=== PATIENT | male | born 1965 | race Caucasian/White ===

== ENCOUNTER 2017-04-04 20:26 | Emergency (ER) | payer OTHER, SELFPAY ==
[2017-04-04] MEDS ORDERED: MORPHINE SULFATE 4 MG INJ IV ONE (20:58)
[2017-04-04] MEDS ORDERED: Phenergan 25 MG INJ IV ONE (20:58)
[2017-04-04] MEDS ORDERED: Sodium Chloride 0.9% 1000 ML 1,000 ML IV SCH (21:00)
[2017-04-04] MEDS ORDERED: Phenergan 25 MG INJ ONE (21:06)
[2017-04-04] MEDS ORDERED: MORPHINE SULFATE 4 MG INJ ONE (21:06)
[2017-04-04] MEDS ORDERED: Sodium Chloride 0.9% 1000 ML 1,000 ML ONE (21:06)
--- NOTE | 2017-04-04 21:06 | ERPHSYRPT ---
- History of Present Illness Time Seen by Provider: 04/04/17 20:49 Source: patient Exam Limitations: no limitations Patient Subjective Stated Complaint: pt states he strained his arm last week and started having sudden swelling and pain today while sitting on the couch. denies injury today. Triage Nursing Assessment: pt alert and oriented. answers questions approp. respirations shallo, lungs cta. pt ambulatory with steady gait noted. pt restless in bed, swelling noted to rt upper arm with bruising noted to rt bicep area. radial pulse to rt arm wnl. cap refill to rt hand >3 seconds, >3 sec to lt side also. pt states he is unable to straighten rt elbow or lift arm over head. Physician History: LAST WEEK PT STRAINED HIS RIGHT ARM LIFTING LUMBER AND HAD A "VALLEY" OVER HIS BICEPS. ABOUT 3 HOURS AGO PT WAS SITTING ON THE COUCH WHEN HIS RIGHT ARM BECAME SWOLLEN AND BRUISED WITHOUT TRAUMA TONIGHT. PT DENIES PREVIOUS INJURY TO THE RIGHT ARM PRIOR TO LAST WEEK; DENIES NUMBNESS OF THE RIGHT HAND DIGITS. PT DENIES FEVER, VOMITING, CHEST PAIN. Allergies/Adverse Reactions: diflunisal [From Dolobid] Allergy (Verified 04/04/17 20:58) propoxyphene HCl [From Wygesic] Allergy (Verified 04/04/17 20:58) Home Medications: Carvedilol [Coreg] 25 mg PO BID 04/04/17 [History] Hydrocodone Bit/Acetaminophen [Hydrocodon-Acetaminophn 10-325] 1 each PO Q4- 6HPRN PRN 04/04/17 [History] Lisinopril 20 mg [Zestril 20 MG] 20 mg PO BID 04/04/17 [History] Tizanidine HCl 4 mg [Zanaflex 4 MG] 4 mg PO Q8HPRN PRN 04/04/17 [History] Hx Tetanus, Diphtheria Vaccination/Date Given: Yes Hx Influenza Vaccination/Date Given: No Hx Pneumococcal Vaccination/Date Given: No Immunizations Up to Date: Yes - Review of Systems Constitutional: No Fever Cardiac: No Chest Pain Abdominal/Gastrointestinal: No Vomiting Musculoskeletal: Other (RIGHT ARM SWELLING, BRUISING AND TENDERNESS TONIGHT.) Neurological: No Sensory Changes All Other Systems: Reviewed and Negative - Past Medical History Pertinent Past Medical History: Yes Neurological History: Stroke Cardiac History: Hypertension Respiratory History: No Pertinent History Endocrine Medical History: No Pertinent History Musculoskeletal History: No Pertinent History GI Medical History: No Pertinent History History: Other Psycho-Social History: No Pertinent History Male Reproductive Disorders: No Pertinent History Other Medical History: pt states no stroke deficits. hx of kidney stones - Past Surgical History Past Surgical History: Yes Musculoskeletal: Orthopedic Surgery Other Surgical History: left thumb operation, L4L5 operations. - Social History Smoking Status: Current every day smoker How long have you smoked: 17 yrs Exposure to second hand smoke: Yes Alcohol Use: None Drug Use: none Patient Lives Alone: No Significant Family History: no pertinent family hx - Nursing Vital Signs Nursing Vital Signs: Initial Vital Signs Temperature 97.6 F Temperature Source Oral Pulse Rate 89 Respiratory Rate 28 Blood Pressure [] 168/109 Pain Intensity 10 - Physical Exam General Appearance: alert Eyes, Ears, Nose, Throat Exam: pharynx normal, moist mucous membranes, other ( CERUMEN OCCLUSION OF RIGHT EAR) Neck Exam: normal inspection Cardiovascular/Respiratory Exam: normal breath sounds, heart sounds normal Abdominal Exam: soft (B.S. NORMAL) Back Exam: normal range of motion Shoulder Exam: swelling (RIGHT ARM HAS MILD EDEMA, TENDERNESS AND BRUISING OVER THE BICEPS WITH LIMITED ROM AT THE ELBOW AND SHOULDER DUE TO TENDERNESS OVER THE BICEPS.) Wrist Exam: normal inspection, non-tender, no evidence of injury, normal ROM Hand Exam: normal inspection, non-tender, no evidence of injury, normal ROM Neuro/Tendon Exam: normal sensation Mental Status Exam: alert, cooperative Skin Exam: other (CAPILLARY REFILL IS 1 SECOND FOR BOTH HANDS.) SpO2 Interpretation: normal SpO2: 100 Oxygen Delivery: Room Air - Course Nursing assessment & vital signs reviewed: Yes - Radiology Exams Right Humerus X-ray Interpretation: Interpreted by me, No Fracture - Radiology Ultrasound Exam Right Other Ultrasound: Other (TECH REPORT: RUPTURED RIGHT BICEPS; NO DVT.) Ordered Tests: Active Orders 24 hr Category Date Time Status IV Insertion STAT Care 04/04/17 20:58 Active HUMERUS Stat Exams 04/04/17 20:55 Taken VENOUS UNILAT/LIMITED EXTREMIT [US] Stat Exams 04/04/17 20:59 Ordered CBC W DIFF Stat Lab 04/04/17 21:10 Completed CMP Stat Lab 04/04/17 21:10 Completed Erythrocyte Sedimentation Rate Stat Lab 04/04/17 21:10 Completed PROTIME WITH INR Stat Lab 04/04/17 21:10 Completed PTT Stat Lab 04/04/17 21:10 Completed Medication Summary Generic Name Dose Route Start Last Admin Trade Name Raiza PRN Reason Stop Dose Admin Sodium Chloride 1,000 mls @ 100 mls/hr 04/04/17 21:00 04/04/17 21:07 Sodium Chloride 0.9% 1000 Ml IV 05/04/17 20:59 100 mls/hr .Q10H DANA Administration Discontinued Medications Generic Name Dose Route Start Last Admin Trade Name Raiza GAMAN Reason Stop Dose Admin Morphine Sulfate 4 mg 04/04/17 20:58 04/04/17 21:08 Morphine Sulfate 4 Mg Inj IV 04/04/17 20:59 4 mg STAT ONE Administration Morphine Sulfate Confirm 04/04/17 21:06 Morphine Sulfate 4 Mg Inj Administered 04/04/17 21:07 Dose 4 mg .ROUTE .STK-MED ONE Promethazine HCl 12.5 mg 04/04/17 20:58 04/04/17 21:08 Phenergan 25 Mg Inj IV 04/04/17 20:59 12.5 mg STAT ONE Administration Promethazine HCl Confirm 04/04/17 21:06 Phenergan 25 Mg Inj Administered 04/04/17 21:07 Dose 25 mg .ROUTE .STK-MED ONE Lab/Rad Data: Laboratory Result Diagrams 04/04/17 21:10 04/04/17 21:10 Laboratory Results 04/04/17 04/04/17 04/04/17 Range/Units 21:10 21:10 21:10 WBC (4.0-10.5) K/mm3 RBC (4.1-5.6) M/mm3 Hgb (12.5-18.0) gm/dl Hct (42-50) % MCV (78-100) fl MCH (26-32) pg MCHC (32-36) g/dl RDW (11.5-14.0) % Plt Count (150-450) K/mm3 MPV (6-9.5) fl Gran % (36.0-66.0) % Lymphocytes % (24.0-44.0) % Monocytes % (0.0-12.0) % Eosinophils % (0.00-5.0) % Basophils % (0.0-0.4) % Basophils # (0-0.4) ESR 5 (0-15) mm/hr INR 1.07 (0.8-3.0) APTT 28.9 (24.1-36.1) SECONDS Sodium 143 (136-145) mEq/L Potassium 3.7 (3.5-5.1) mEq/L Chloride 106 (98-107) mEq/L Carbon Dioxide 29.1 (21-32) mEq/L Anion Gap 11.5 (5-15) MEQ/L BUN 12 (9-20) mg/dL Creatinine 1.20 (0.55-1.30) mg/dl Estimated GFR > 60 ML/MIN Glucose 136 H (70-110) MG/DL Calcium 9.3 (8.5-10.1) mg/dL Total Bilirubin 0.3 (0.2-1.0) mg/dL AST 48 H (15-37) U/L ALT 149 H (12-78) U/L Alkaline Phosphatase 85 (46-116) U/L Serum Total Protein 8.0 (6.4-8.2) gm/dL Albumin 3.7 (3.4-5.0) g/dL 04/04/17 Range/Units 21:10 WBC 9.9 (4.0-10.5) K/mm3 RBC 4.91 (4.1-5.6) M/mm3 Hgb 16.1 (12.5-18.0) gm/dl Hct 47.4 (42-50) % MCV 96.5 (78-100) fl MCH 32.8 H (26-32) pg MCHC 34.0 (32-36) g/dl RDW 12.6 (11.5-14.0) % Plt Count 143 L (150-450) K/mm3 MPV 11.7 H (6-9.5) fl Gran % 71.2 H (36.0-66.0) % Lymphocytes % 19.5 L (24.0-44.0) % Monocytes % 7.8 (0.0-12.0) % Eosinophils % 1.4 (0.00-5.0) % Basophils % 0.1 (0.0-0.4) % Basophils # 0.01 (0-0.4) ESR (0-15) mm/hr INR (0.8-3.0) APTT (24.1-36.1) SECONDS Sodium (136-145) mEq/L Potassium (3.5-5.1) mEq/L Chloride (98-107) mEq/L Carbon Dioxide (21-32) mEq/L Anion Gap (5-15) MEQ/L BUN (9-20) mg/dL Creatinine (0.55-1.30) mg/dl Estimated GFR ML/MIN Glucose (70-110) MG/DL Calcium (8.5-10.1) mg/dL Total Bilirubin (0.2-1.0) mg/dL AST (15-37) U/L ALT (12-78) U/L Alkaline Phosphatase (46-116) U/L Serum Total Protein (6.4-8.2) gm/dL Albumin (3.4-5.0) g/dL - Departure Time of Disposition: 22:44 Departure Disposition: Home Clinical Impression: RUPTURED RIGHT BICEPS Condition: Fair Critical Care Time: No Referrals: MERRILL WICK MD [Primary Care Provider] - Instructions: Muscle Strain Additional Instructions: FOLLOW UP WITH PRIVATE DOCTOR TOMORROW. KEEP RIGHT ARM IN SLING UNTIL DOCTOR IS SEEN. DO NOT USE RIGHT ARM. Prescriptions: Naproxen [Naprosyn] 500 mg PO [id number] PRN #20 tablet PRN Reason: Pain
[2017-04-04 21:24] LABS: BASOPHIL % 0.1 % (0.0-0.4); Eosinophil % 1.4 % (0.00-5.0); Granulocytes % 71.2 % (36.0-66.0); Lymphocytes % 19.5 % (24.0-44.0); Mean Cell Volume 96.5 fl (78-100); Mean Corpuscular Hemoglobin 32.8 pg (26-32); Mean Platelet Volume 11.7 fl (6-9.5); Monocytes % 7.8 % (0.0-12.0); Platelet Count 143 K/mm3 (150-450); Red Blood Count 4.91 M/mm3 (4.1-5.6); Red Cell Distribution Width 12.6 % (11.5-14.0); White Blood Count 9.9 K/mm3 (4.0-10.5)
[2017-04-04 21:39] LABS: INR 1.07 (0.8-3.0)
[2017-04-04 21:41] LABS: PTT 28.9 SECONDS (24.1-36.1)
[2017-04-04 21:47] LABS: ALBUMIN 3.7 g/dL (3.4-5.0); ALKALINE PHOSPHATASE 85 U/L (46-116); ANION GAP 11.5 MEQ/L (5-15); BILIRUBIN,TOTAL 0.3 mg/dL (0.2-1.0); BLOOD UREA NITROGEN 12 mg/dL (9-20); CHLORIDE 106 mEq/L (98-107); Carbon Dioxide 29.1 mEq/L (21-32); Glucose 136 MG/DL (70-110); Potassium 3.7 mEq/L (3.5-5.1); SGOT/AST 48 U/L (15-37); SGPT/ALT 149 U/L (12-78); SODIUM 143 mEq/L (136-145)
[2017-04-04] MEDS ORDERED: NORCO 5/325 MG PO ONE ×2 (22:44)
[2017-04-04] MEDS ORDERED: NORCO 5/325 MG ONE (22:58)
[2017-04-04 23:24] VITALS: BP 146/101; PULSE 92; O2SAT 92
--- NOTE | 2017-04-05 08:45 | XRAY ---
Indication: Pain, swelling, and tenderness. No known injury. Comparison: None 2 views of the right humerus demonstrates mild acromioclavicular degenerative arthropathy. No other bony, articular, or soft tissue abnormalities.
--- NOTE | 2017-04-05 08:49 | XRAY ---
Indication: Pain and swelling. Two-dimensional sonogram and color Doppler imaging of the major venous vessels of the right upper extremity was performed. Comparison: None No thrombus seen in the visualized jugular, subclavian, axillary, brachial, basilic, cephalic, radial, and ulnar veins. Veins demonstrated normal compressibility. Venous waveforms are normal with and without augmentation. Visualized biceps muscle demonstrates 5.5 x 4.2 x 3.9 cm round focus of heterogeneous echogenicity without abnormal color Doppler flow. Suspect muscular rupture with hematoma. No abnormal fluid collection. Impression: 1. Right upper extremity negative for venous thrombus. 2. Suspect biceps muscular rupture with hematoma. Comment: Preliminary report was given.
== END 2017-04-04 23:24 | disposition home or self-care (01) ==
LOC: ED 20:26
DX: S46.211A Strain of muscle, fascia and tendon of other parts of biceps, right arm, initial encounter (principal); X50.0XXA Overexertion from strenuous movement or load, initial encounter
CPT/HCPCS: 36415; 73060; 80053; 85025; 85610; 85652; 85730; 93971; 96360; 96361; 96374; 96375; 99284; J2270; J2550; A9270-GY

== ENCOUNTER 2017-08-28 20:48 | Emergency (ER) | payer OTHER, SELFPAY ==
[2017-08-28] MEDS ORDERED: Sodium Chloride 0.9% 1000 ML 1,000 ML IV STA ×3 (21:08→22:41)
--- NOTE | 2017-08-28 21:18 | ERPHSYRPT ---
- History of Present Illness Time Seen by Provider: 08/28/17 20:56 Source: patient, EMS, other (GIRLFRIEND) Exam Limitations: no limitations Physician History: FOR THE PAST 3 DAYS PT HAS HAD SLURRED SPEECH AND NAUSEA; FOR THE PAST 2 DAYS CHILLS. PT WENT TO [facility] ER YESTERDAY SH[facility] REPAIRER WHERE A CT-SCAN REVEALED A 7 X 6 mm OBSTRUCTING CALCULUS AT THE LEFT UPJ AND PT WAS ALSO DX'ED WITH A UTI BUT PT DID NOT GET HIS ANTIBIOTIC FILLED. PT DENIES VOMITING, DIARRHEA, CHEST PAIN, ABDOMINAL PAIN, SHORTNESS OF AIR, HEADACHE, TINGLING/NUMBNESS, WEAKNESS. PT'S GIRLFRIEND STATES PT HAS HAD INTERMITTENT FEVER(SUBJECTIVE) FOR THE PAST MONTH. Allergies/Adverse Reactions: diflunisal [From Dolobid] Allergy (Verified 04/04/17 20:58) propoxyphene HCl [From Wygesic] Allergy (Verified 04/04/17 20:58) Home Medications: Carvedilol [Coreg] 25 mg PO BID 04/04/17 [History] Lisinopril 20 mg [Zestril 20 MG] 20 mg PO BID 04/04/17 [History] Hx Tetanus, Diphtheria Vaccination/Date Given: Yes Hx Influenza Vaccination/Date Given: No Hx Pneumococcal Vaccination/Date Given: No - Review of Systems Constitutional: Fever (SUBJECTIVE), Chills, No Weakness Ears, Nose, & Throat: No Ear Pain, No Throat Pain Respiratory: No Dyspnea Cardiac: No Chest Pain Abdominal/Gastrointestinal: Nausea, No Abdominal Pain, No Vomiting, No Diarrhea Neurological: Speech Changes, No Focal Weakness, No Headache, No Sensory Changes All Other Systems: Reviewed and Negative - Past Medical History Pertinent Past Medical History: Yes Neurological History: Stroke Cardiac History: Hypertension Respiratory History: No Pertinent History Endocrine Medical History: No Pertinent History Musculoskeletal History: No Pertinent History GI Medical History: No Pertinent History History: Other Psycho-Social History: No Pertinent History Male Reproductive Disorders: No Pertinent History Other Medical History: pt states no stroke deficits. hx of kidney stones - Past Surgical History Past Surgical History: Yes Musculoskeletal: Orthopedic Surgery Other Surgical History: left thumb operation, L4L5 operations. - Social History Smoking Status: Current every day smoker How long have you smoked: 17 yrs Exposure to second hand smoke: Yes Alcohol Use: None Drug Use: none Patient Lives Alone: No Significant Family History: no pertinent family hx - Nursing Vital Signs Nursing Vital Signs: Initial Vital Signs Temperature 99.2 F 08/28/17 20:49 Pulse Rate 92 H 08/28/17 20:49 Respiratory Rate 23 08/28/17 20:49 Blood Pressure 101/50 08/28/17 20:49 O2 Sat by Pulse Oximetry 90 L 08/28/17 20:49 Pain Scale Pain Intensity 0 - Physical Exam General Appearance: alert Eye Exam: PERRL/EOMI Ears, Nose, Throat Exam: TMs normal, dry mucous membranes, pharyngeal erythema ( MILD) Neck Exam: normal inspection Respiratory Exam: lungs clear Cardiovascular Exam: normal heart sounds Gastrointestinal/Abdomen Exam: soft, normal bowel sounds Back Exam: normal range of motion Extremity Exam: normal inspection, normal range of motion, No pedal edema Neurologic Exam: alert, cooperative, polymer specialist II-XII nml as tested, sensation nml, slurred speech, No oriented x 3 (DISORIENTED TO PLACE & TIME.), No motor deficits Skin Exam: warm, dry - Course Nursing assessment & vital signs reviewed: Yes EKG Interpreted by Me: RATE (90), Sinus Rhythm, NORMAL AXIS, NORMAL INTERVALS - Radiology Exams Chest X-ray Interpretation: Interpreted by me, No Pneumonia - CT Exams Head CT Interpretation: Discussed w/radiologist (NEGATIVE CT-HEAD) Ordered Tests: Active Orders 24 hr Category Date Time Status Corporate Tutor STAT Care 08/28/17 21:06 Active Corporate Tutor STAT Care 08/28/17 21:08 Active Clean Catch Urine Specimen STAT Care 08/28/17 21:06 Inactive EKG-ER Only STAT Care 08/28/17 21:06 Active IV Insertion STAT Care 08/28/17 21:08 Active Pulse Oximetry (ED) STAT Care 08/28/17 21:06 Active Saline Lock STAT Care 08/28/17 21:06 Active cath [Cath for Specimen-Straight] STAT Care 08/28/17 23:06 Active CHEST 1 VIEW (PORTABLE) Stat Exams 08/28/17 21:07 Taken HEAD WITHOUT CONTRAST [CT] Stat Exams 08/28/17 21:09 Taken AMYLASE Stat Lab 08/28/17 21:10 Completed ARTERIAL BLOOD GASES Urgent Lab 08/28/17 21:24 Completed BLOOD CULTURE Stat Lab 08/28/17 21:25 Received CBC W DIFF Stat Lab 08/28/17 21:10 Completed CMP Stat Lab 08/28/17 21:10 Completed CULTURE,URINE Stat Lab 08/28/17 22:55 Received ETHYL ALCOHOL Stat Lab 08/28/17 21:25 Completed Erythrocyte Sedimentation Rate Stat Lab 08/28/17 21:10 Completed LIPASE Stat Lab 08/28/17 21:10 Completed Lactic Acid Stat Lab 08/28/17 21:24 Completed MAGNESIUM Stat Lab 08/28/17 21:10 Completed Manual Differential NC Stat Lab 08/28/17 21:10 Completed Boone Screen Stat Lab 08/28/17 21:10 Completed PROTIME WITH INR Stat Lab 08/28/17 21:10 Completed PTT Stat Lab 08/28/17 21:10 Completed STREP SCREEN-BETA A Stat Lab 08/28/17 21:30 Completed TROPONIN Q3H Lab 08/28/17 21:10 Completed TROPONIN Q3H Lab 08/29/17 00:15 Ordered TROPONIN Q3H Lab 08/29/17 03:15 Ordered TROPONIN Q3H Lab 08/29/17 06:15 Ordered TROPONIN Q3H Lab 08/29/17 09:15 Ordered UA W/ MICROSCOPIC Stat Lab 08/28/17 22:55 Completed Urine Triage Profile Stat Lab 08/28/17 22:55 Completed Medication Summary Discontinued Medications Generic Name Dose Route Start Last Admin Trade Name Freq PRN Reason Stop Dose Admin Sodium Chloride 1,000 mls @ 999 mls/hr 08/28/17 21:08 08/28/17 21:25 Sodium Chloride 0.9% 1000 Ml IV 08/28/17 22:08 999 mls/hr .Q1H1M STA Administration Sodium Chloride Confirm 08/28/17 21:23 Sodium Chloride 0.9% 1000 Ml Administered 08/28/17 21:24 Dose 1,000 mls @ ud .ROUTE .STK-MED ONE Ceftriaxone Sodium/Dextrose 1 g in 50 mls @ 100 mls/hr 08/28/17 21:33 21:50 Rocephin 1 Gm-D5w 50 Ml Bag IV 08/28/17 22:02 100 mls/hr STAT STA Administration Ceftriaxone Sodium/Dextrose Confirm 08/28/17 21:45 Rocephin 1 Gm-D5w 50 Ml Bag Administered 08/28/17 21:46 Dose 1 g in 50 mls @ ud IV .STK-MED ONE Sodium Chloride 1,000 mls @ 999 mls/hr 08/28/17 22:28 08/28/17 22:37 Sodium Chloride 0.9% 1000 Ml IV 08/28/17 23:28 999 mls/hr .Q1H1M STA Administration Sodium Chloride Confirm 08/28/17 22:36 Sodium Chloride 0.9% 1000 Ml Administered 08/28/17 22:37 Dose 1,000 mls @ ud .ROUTE .STK-MED ONE Magnesium Sulfate/Dextrose 100 mls @ 200 mls/hr 08/28/17 22:41 08/28/17 22:50 Magnesium 1 Gm / 100 Ml D5w IV 08/28/17 23:10 200 mls/hr STAT ONE Administration Sodium Chloride 1,000 mls @ 999 mls/hr 08/28/17 22:41 08/28/17 23:41 Sodium Chloride 0.9% 1000 Ml IV 08/28/17 23:41 999 mls/hr .Q1H1M STA Administration Magnesium Sulfate/Dextrose Confirm 08/28/17 22:49 Magnesium 1 Gm / 100 Ml D5w Administered 08/28/17 22:50 Dose 100 mls @ ud IV .STK-MED ONE Sodium Chloride Confirm 08/28/17 23:40 Sodium Chloride 0.9% 1000 Ml Administered 08/28/17 23:41 Dose 1,000 mls @ ud .ROUTE .STK-MED ONE Lab/Rad Data: Laboratory Result Diagrams 08/28/17 21:10 08/28/17 21:10 Laboratory Results 08/28/17 08/28/17 08/28/17 Range/Units 22:55 22:55 21:30 WBC (4.0-10.5) K/mm3 RBC (4.1-5.6) M/mm3 Hgb (12.5-18.0) gm/dl Hct (42-50) % MCV (78-100) fl MCH (26-32) pg MCHC (32-36) g/dl RDW (11.5-14.0) % Plt Count (150-450) K/mm3 MPV (6-9.5) fl ESR (0-15) mm/hr INR (0.8-3.0) APTT (24.1-36.1) SECONDS Puncture Site pCO2 (35-45) mmHg pO2 (75-100) mmHg Base Excess (-2.0-2.0) O2 Saturation (94-100) g/dF ABG pH (7.35-7.45) ABG HCO3 (22-28) ABG O2 Sat (Measured) (95-100) % Rasheed Test A-a Gradient a/A Ratio Hemoglobin Carboxyhemoglobin (0.0-6.9) % THgb Methemoglobin (1.4-1.5) % Temperature C POC O2 Flow Rate % Sodium (136-145) mEq/L Potassium (3.5-5.1) mEq/L Chloride (98-107) mEq/L Carbon Dioxide (21-32) mEq/L Anion Gap (5-15) MEQ/L BUN (9-20) mg/dL Creatinine (0.55-1.30) mg/dl Estimated GFR ML/MIN Glucose (70-110) MG/DL Lactic Acid (0.4-2.0) Calcium (8.5-10.1) mg/dL Magnesium (1.8-2.4) mg/dL Total Bilirubin (0.2-1.0) mg/dL AST (15-37) U/L ALT (12-78) U/L Alkaline Phosphatase (46-116) U/L Ammonia (11-32) MMOL/l Troponin I (0.000-0.056) ng/ml Serum Total Protein (6.4-8.2) gm/dL Albumin (3.4-5.0) g/dL Amylase (25-115) U/L Lipase (73-393) U/L Ur Collection Type CLEAN CATCH Urine Color BROWN (YELLOW) Urine Appearance CLOUDY (CLEAR) Urine pH 5.0 (5-6) Ur Specific Cowan 1.020 (1.005-1.025) Urine Protein 30 (Negative) Urine Ketones NEGATIVE (NEGATIVE) Urine Blood 250 (0-5) Elver/ul Urine Nitrite NEGATIVE (NEGATIVE) Urine Bilirubin NEGATIVE (NEGATIVE) Urine Urobilinogen NORMAL (0-1) mg/dL Ur Leukocyte Esterase 2+ (NEGATIVE) Urine Microscopic RBC 25-50 (0-2) /HPF Urine Microscopic WBC >100 (0-5) /HPF Ur Epithelial Cells FEW (FEW) /HPF Urine Bacteria MANY (NEGATIVE) /HPF Hyaline Casts 0-2 (0-2) /LPF Urine Glucose NEGATIVE (NEGATIVE) mg/dL Urine Opiates Level NEG. (NEGATIVE) Ur Methadone NEG. (NEGATIVE) Urine Barbiturates NEG. (NEGATIVE) Ur Phencyclidine (PCP) NEG. (NEGATIVE) Urine Amphetamine POS. (NEGATIVE) U Benzodiazepine Level NEG. (NEGATIVE) Urine Cocaine NEG. (NEGATIVE) Urine Marijuana (THC) NEG. (NEGATIVE) Ethyl Alcohol (0.00-0.01) % Monoscreen (Negative) Influenza Type A Ag NEGATIVE (NEGATIVE) Influenza Type B Ag NEGATIVE (NEGATIVE) RSV (PCR) NEGATIVE (Negative) Streptococcus Screen (Negative) Specimen Received 08/28/17 2300 08/28/17 08/28/17 08/28/17 Range/Units 21:30 21:25 21:24 WBC (4.0-10.5) K/mm3 RBC (4.1-5.6) M/mm3 Hgb (12.5-18.0) gm/dl Hct (42-50) % MCV (78-100) fl MCH (26-32) pg MCHC (32-36) g/dl RDW (11.5-14.0) % Plt Count (150-450) K/mm3 MPV (6-9.5) fl ESR (0-15) mm/hr INR (0.8-3.0) APTT (24.1-36.1) SECONDS Puncture Site LEFT RADIAL pCO2 26 L (35-45) mmHg pO2 118 H (75-100) mmHg Base Excess -0.7 (-2.0-2.0) O2 Saturation 93.9 L (94-100) g/dF ABG pH 7.51 H (7.35-7.45) ABG HCO3 20.7 L (22-28) ABG O2 Sat (Measured) 97.8 (95-100) % Rasheed Test YES A-a Gradient 49 a/A Ratio 0.71 Hemoglobin 15.4 Carboxyhemoglobin 3.0 (0.0-6.9) % THgb Methemoglobin 1.0 L (1.4-1.5) % Temperature 37.0 C POC O2 Flow Rate 28 % Sodium (136-145) mEq/L Potassium 4.1 (3.5-5.1) mEq/L Chloride (98-107) mEq/L Carbon Dioxide (21-32) mEq/L Anion Gap (5-15) MEQ/L BUN (9-20) mg/dL Creatinine (0.55-1.30) mg/dl Estimated GFR ML/MIN Glucose (70-110) MG/DL Lactic Acid (0.4-2.0) Calcium (8.5-10.1) mg/dL Magnesium (1.8-2.4) mg/dL Total Bilirubin (0.2-1.0) mg/dL AST (15-37) U/L ALT (12-78) U/L Alkaline Phosphatase (46-116) U/L Ammonia (11-32) MMOL/l Troponin I (0.000-0.056) ng/ml Serum Total Protein (6.4-8.2) gm/dL Albumin (3.4-5.0) g/dL Amylase (25-115) U/L Lipase (73-393) U/L Ur Collection Type Urine Color (YELLOW) Urine Appearance (CLEAR) Urine pH (5-6) Ur Specific Cowan (1.005-1.025) Urine Protein (Negative) Urine Ketones (NEGATIVE) Urine Blood (0-5) Elvre/ul Urine Nitrite (NEGATIVE) Urine Bilirubin (NEGATIVE) Urine Urobilinogen (0-1) mg/dL Ur Leukocyte Esterase (NEGATIVE) Urine Microscopic RBC (0-2) /HPF Urine Microscopic WBC (0-5) /HPF Ur Epithelial Cells (FEW) /HPF Urine Bacteria (NEGATIVE) /HPF Hyaline Casts (0-2) /LPF Urine Glucose (NEGATIVE) mg/dL Urine Opiates Level (NEGATIVE) Ur Methadone (NEGATIVE) Urine Barbiturates (NEGATIVE) Ur Phencyclidine (PCP) (NEGATIVE) Urine Amphetamine (NEGATIVE) U Benzodiazepine Level (NEGATIVE) Urine Cocaine (NEGATIVE) Urine Marijuana (THC) (NEGATIVE) Ethyl Alcohol < 0.010 (0.00-0.01) % Monoscreen (Negative) Influenza Type A Ag (NEGATIVE) Influenza Type B Ag (NEGATIVE) RSV (PCR) (Negative) Streptococcus Screen POSITIVE (Negative) Specimen Received 08/28/17 08/28/17 08/28/17 Range/Units 21:24 21:10 21:10 WBC (4.0-10.5) K/mm3 RBC (4.1-5.6) M/mm3 Hgb (12.5-18.0) gm/dl Hct (42-50) % MCV (78-100) fl MCH (26-32) pg MCHC (32-36) g/dl RDW (11.5-14.0) % Plt Count (150-450) K/mm3 MPV (6-9.5) fl ESR (0-15) mm/hr INR (0.8-3.0) APTT (24.1-36.1) SECONDS Puncture Site pCO2 (35-45) mmHg pO2 (75-100) mmHg Base Excess (-2.0-2.0) O2 Saturation (94-100) g/dF ABG pH (7.35-7.45) ABG HCO3 (22-28) ABG O2 Sat (Measured) (95-100) % Rasheed Test A-a Gradient a/A Ratio Hemoglobin Carboxyhemoglobin (0.0-6.9) % THgb Methemoglobin (1.4-1.5) % Temperature C POC O2 Flow Rate % Sodium (136-145) mEq/L Potassium (3.5-5.1) mEq/L Chloride (98-107) mEq/L Carbon Dioxide (21-32) mEq/L Anion Gap (5-15) MEQ/L BUN (9-20) mg/dL Creatinine (0.55-1.30) mg/dl Estimated GFR ML/MIN Glucose (70-110) MG/DL Lactic Acid 1.6 (0.4-2.0) Calcium (8.5-10.1) mg/dL Magnesium (1.8-2.4) mg/dL Total Bilirubin (0.2-1.0) mg/dL AST (15-37) U/L ALT (12-78) U/L Alkaline Phosphatase (46-116) U/L Ammonia 15 (11-32) MMOL/l Troponin I (0.000-0.056) ng/ml Serum Total Protein (6.4-8.2) gm/dL Albumin (3.4-5.0) g/dL Amylase (25-115) U/L Lipase (73-393) U/L Ur Collection Type Urine Color (YELLOW) Urine Appearance (CLEAR) Urine pH (5-6) Ur Specific Cowan (1.005-1.025) Urine Protein (Negative) Urine Ketones (NEGATIVE) Urine Blood (0-5) Elver/ul Urine Nitrite (NEGATIVE) Urine Bilirubin (NEGATIVE) Urine Urobilinogen (0-1) mg/dL Ur Leukocyte Esterase (NEGATIVE) Urine Microscopic RBC (0-2) /HPF Urine Microscopic WBC (0-5) /HPF Ur Epithelial Cells (FEW) /HPF Urine Bacteria (NEGATIVE) /HPF Hyaline Casts (0-2) /LPF Urine Glucose (NEGATIVE) mg/dL Urine Opiates Level (NEGATIVE) Ur Methadone (NEGATIVE) Urine Barbiturates (NEGATIVE) Ur Phencyclidine (PCP) (NEGATIVE) Urine Amphetamine (NEGATIVE) U Benzodiazepine Level (NEGATIVE) Urine Cocaine (NEGATIVE) Urine Marijuana (THC) (NEGATIVE) Ethyl Alcohol (0.00-0.01) % Monoscreen NEGATIVE (Negative) Influenza Type A Ag (NEGATIVE) Influenza Type B Ag (NEGATIVE) RSV (PCR) (Negative) Streptococcus Screen (Negative) Specimen Received 08/28/17 08/28/17 08/28/17 Range/Units 21:10 21:10 21:10 WBC (4.0-10.5) K/mm3 RBC (4.1-5.6) M/mm3 Hgb (12.5-18.0) gm/dl Hct (42-50) % MCV (78-100) fl MCH (26-32) pg MCHC (32-36) g/dl RDW (11.5-14.0) % Plt Count (150-450) K/mm3 MPV (6-9.5) fl ESR (0-15) mm/hr INR 1.26 (0.8-3.0) APTT 32.3 (24.1-36.1) SECONDS Puncture Site pCO2 (35-45) mmHg pO2 (75-100) mmHg Base Excess (-2.0-2.0) O2 Saturation (94-100) g/dF ABG pH (7.35-7.45) ABG HCO3 (22-28) ABG O2 Sat (Measured) (95-100) % Rasheed Test A-a Gradient a/A Ratio Hemoglobin Carboxyhemoglobin (0.0-6.9) % THgb Methemoglobin (1.4-1.5) % Temperature C POC O2 Flow Rate % Sodium 137 (136-145) mEq/L Potassium 4.1 (3.5-5.1) mEq/L Chloride 100 (98-107) mEq/L Carbon Dioxide 26.6 (21-32) mEq/L Anion Gap 14.5 (5-15) MEQ/L BUN 52 H (9-20) mg/dL Creatinine 6.16 H (0.55-1.30) mg/dl Estimated GFR 10 ML/MIN Glucose 112 H (70-110) MG/DL Lactic Acid (0.4-2.0) Calcium 8.2 L (8.5-10.1) mg/dL Magnesium 1.6 L (1.8-2.4) mg/dL Total Bilirubin 0.80 (0.2-1.0) mg/dL AST 42 H (15-37) U/L ALT 85 H (12-78) U/L Alkaline Phosphatase 81 (46-116) U/L Ammonia (11-32) MMOL/l Troponin I 0.070 H* (0.000-0.056) ng/ml Serum Total Protein 6.6 (6.4-8.2) gm/dL Albumin 2.6 L (3.4-5.0) g/dL Amylase 35 (25-115) U/L Lipase 74 (73-393) U/L Ur Collection Type Urine Color (YELLOW) Urine Appearance (CLEAR) Urine pH (5-6) Ur Specific Cowan (1.005-1.025) Urine Protein (Negative) Urine Ketones (NEGATIVE) Urine Blood (0-5) Elver/ul Urine Nitrite (NEGATIVE) Urine Bilirubin (NEGATIVE) Urine Urobilinogen (0-1) mg/dL Ur Leukocyte Esterase (NEGATIVE) Urine Microscopic RBC (0-2) /HPF Urine Microscopic WBC (0-5) /HPF Ur Epithelial Cells (FEW) /HPF Urine Bacteria (NEGATIVE) /HPF Hyaline Casts (0-2) /LPF Urine Glucose (NEGATIVE) mg/dL Urine Opiates Level (NEGATIVE) Ur Methadone (NEGATIVE) Urine Barbiturates (NEGATIVE) Ur Phencyclidine (PCP) (NEGATIVE) Urine Amphetamine (NEGATIVE) U Benzodiazepine Level (NEGATIVE) Urine Cocaine (NEGATIVE) Urine Marijuana (THC) (NEGATIVE) Ethyl Alcohol (0.00-0.01) % Monoscreen (Negative) Influenza Type A Ag (NEGATIVE) Influenza Type B Ag (NEGATIVE) RSV (PCR) (Negative) Streptococcus Screen (Negative) Specimen Received 08/28/17 Range/Units 21:10 WBC 28.5 H* (4.0-10.5) K/mm3 RBC 4.18 (4.1-5.6) M/mm3 Hgb 13.3 (12.5-18.0) gm/dl Hct 39.4 L (42-50) % MCV 94.3 (78-100) fl MCH 31.8 (26-32) pg MCHC 33.8 (32-36) g/dl RDW 13.2 (11.5-14.0) % Plt Count 52 L (150-450) K/mm3 MPV 12.8 H (6-9.5) fl ESR 17 H (0-15) mm/hr INR (0.8-3.0) APTT (24.1-36.1) SECONDS Puncture Site pCO2 (35-45) mmHg pO2 (75-100) mmHg Base Excess (-2.0-2.0) O2 Saturation (94-100) g/dF ABG pH (7.35-7.45) ABG HCO3 (22-28) ABG O2 Sat (Measured) (95-100) % Rasheed Test A-a Gradient a/A Ratio Hemoglobin Carboxyhemoglobin (0.0-6.9) % THgb Methemoglobin (1.4-1.5) % Temperature C POC O2 Flow Rate % Sodium (136-145) mEq/L Potassium (3.5-5.1) mEq/L Chloride (98-107) mEq/L Carbon Dioxide (21-32) mEq/L Anion Gap (5-15) MEQ/L BUN (9-20) mg/dL Creatinine (0.55-1.30) mg/dl Estimated GFR ML/MIN Glucose (70-110) MG/DL Lactic Acid (0.4-2.0) Calcium (8.5-10.1) mg/dL Magnesium (1.8-2.4) mg/dL Total Bilirubin (0.2-1.0) mg/dL AST (15-37) U/L ALT (12-78) U/L Alkaline Phosphatase (46-116) U/L Ammonia (11-32) MMOL/l Troponin I (0.000-0.056) ng/ml Serum Total Protein (6.4-8.2) gm/dL Albumin (3.4-5.0) g/dL Amylase (25-115) U/L Lipase (73-393) U/L Ur Collection Type Urine Color (YELLOW) Urine Appearance (CLEAR) Urine pH (5-6) Ur Specific Cowan (1.005-1.025) Urine Protein (Negative) Urine Ketones (NEGATIVE) Urine Blood (0-5) Elver/ul Urine Nitrite (NEGATIVE) Urine Bilirubin (NEGATIVE) Urine Urobilinogen (0-1) mg/dL Ur Leukocyte Esterase (NEGATIVE) Urine Microscopic RBC (0-2) /HPF Urine Microscopic WBC (0-5) /HPF Ur Epithelial Cells (FEW) /HPF Urine Bacteria (NEGATIVE) /HPF Hyaline Casts (0-2) /LPF Urine Glucose (NEGATIVE) mg/dL Urine Opiates Level (NEGATIVE) Ur Methadone (NEGATIVE) Urine Barbiturates (NEGATIVE) Ur Phencyclidine (PCP) (NEGATIVE) Urine Amphetamine (NEGATIVE) U Benzodiazepine Level (NEGATIVE) Urine Cocaine (NEGATIVE) Urine Marijuana (THC) (NEGATIVE) Ethyl Alcohol (0.00-0.01) % Monoscreen (Negative) Influenza Type A Ag (NEGATIVE) Influenza Type B Ag (NEGATIVE) RSV (PCR) (Negative) Streptococcus Screen (Negative) Specimen Received - Progress Discussed with : Tay (0049 - SENT TO [facility].), Other (SPOKE WITH DR REID(ER DR)(8414) WHO ACCEPTED PT FOR TRANSFER TO [facility] ER.) - Departure Time of Disposition: 23:47 Departure Disposition: Transfer ([facility]) Clinical Impression: LEUKOCYTOSIS R/O SEPSIS, STREPTOCOCCAL PHARNGITIS, ACUTE RENAL FAILURE, KIDNEY STONE LEFT UPJ, HYPOMAGNESEMIA, ELEVATED TROPONIN I, HTN, AMS, METHAMPHETAMINE USE Condition: Stable Critical Care Time: Yes Critical Care Time(excluding separately billable procedures): 30-74 minutes Referrals: DOCTOR,NO FAMILY [Primary Care Provider] -
[2017-08-28 21:20] LABS: Mean Cell Volume 94.3 fl (78-100); Mean Corpuscular Hemoglobin 31.8 pg (26-32); Mean Platelet Volume 12.8 fl (6-9.5); Platelet Count 52 K/mm3 (150-450); Red Blood Count 4.18 M/mm3 (4.1-5.6); Red Cell Distribution Width 13.2 % (11.5-14.0)
[2017-08-28] MEDS ORDERED: Sodium Chloride 0.9% 1000 ML 1,000 ML ONE ×3 (21:23→23:40)
[2017-08-28 21:31] LABS: INR 1.26 (0.8-3.0); PROTIME 14.1 SECONDS (8.83-12.87)
[2017-08-28] MEDS ORDERED: ROCEPHIN 1 Gm-D5w 50 ml Bag** 1 G/50 ML IVPB IV STA (21:33)
[2017-08-28 21:34] LABS: PTT 32.3 SECONDS (24.1-36.1)
[2017-08-28 21:37] LABS: A-aADO2 49; ALLEN TEST OK? YES; ARTERIAL BLD GAS O2 SATURATION 97.8 % (95-100); ARTERIAL BLOOD GAS BASE EXCESS -0.7 (-2.0-2.0); ARTERIAL BLOOD GAS FIO2 28 %; ARTERIAL BLOOD GAS PO2 118 mmHg (75-100); ARTERIAL BLOOD GAS pH 7.51 (7.35-7.45)
[2017-08-28 21:40] LABS: Potassium 4.1 mEq/L (3.5-5.1)
[2017-08-28] MEDS ORDERED: ROCEPHIN 1 Gm-D5w 50 ml Bag** 1 G/50 ML IVPB IV ONE (21:45)
[2017-08-28 21:46] LABS: Erythrocyte Sedimentation Rate 17 mm/hr (0-15); White Blood Count 28.5 K/mm3 (4.0-10.5)
[2017-08-28 21:52] LABS: ALBUMIN 2.6 g/dL (3.4-5.0); BILIRUBIN,TOTAL 0.8 mg/dL (0.2-1.0); Carbon Dioxide 26.6 mEq/L (21-32); MAGNESIUM 1.6 mg/dL (1.8-2.4); Total Protein 6.6 gm/dL (6.4-8.2)
[2017-08-28 22:05] LABS: ANION GAP 14.5 MEQ/L (5-15)
[2017-08-28] MEDS ORDERED: Magnesium 1 Gm / 100 Ml D5W*** 100 ML IV ONE ×2 (22:41→22:49)
[2017-08-28 23:09] LABS: Bilirubin NEGATIVE (NEGATIVE); Blood 250 Ery/ul (0-5); COMPLETE URINE MICROSCOPIC? YES; Collection Type CLEAN CATCH; Glucose NEGATIVE (NEGATIVE); Leukocyte Esterase 2+ (NEGATIVE)
[2017-08-28 23:13] LABS: WBC >100 /HPF (0-5)
[2017-08-28 23:14] LABS: Bacteria MANY /HPF (NEGATIVE); Epithelial Cells FEW /HPF (FEW); Hyaline Casts 0-2 /LPF (0-2)
[2017-08-29] MEDS ORDERED: LEVOPHED 4 MG/4 ML 4,000 MCG in Dextrose 5%/Water IV Soln. 500 ML 500 ML IV PRN (00:17)
[2017-08-29] MEDS ORDERED: Sodium Chloride 0.9% 1000 ML 1,000 ML ONE (00:33)
[2017-08-29] MEDS ORDERED: Sodium Chloride 0.9% 1000 ML 1,000 ML IV SCH (00:45)
[2017-08-29 00:54] VITALS: BP 101/58; PULSE 92; O2SAT 96
--- NOTE | 2017-08-29 08:34 | XRAY ---
Indication: Altered mental status. Disorientation. Comparison: None Portable chest slightly underinflated with minimal bibasilar atelectasis/scarring. No focal infiltrate, consolidation, or large effusion. Heart is borderline enlarged. Bony thorax intact with mild degenerative changes. Impression: Nonacute underinflated chest.
--- NOTE | 2017-08-29 08:34 | XRAY ---
Indication: Altered mental status, disorientation, and slurred speech. Multiple contiguous axial images obtained through the head without contrast. Comparison: None Age-appropriate global atrophy. No acute intracranial hemorrhage, abnormal extra-axial fluid collection, or mass effect. Rainey-white matter differentiation is preserved. Fourth ventricle is midline without hydrocephalus. Bony calvarium intact. Visualized paranasal sinuses and mastoid air cells are clear. Impression: No acute intracranial abnormalities. CT DI 67.60
== END 2017-08-29 00:49 | disposition short-term general hospital (02) ==
LOC: ED 20:48
DX: D72.829 Elevated white blood cell count, unspecified (principal); J02.0 Streptococcal pharyngitis; N17.9 Acute kidney failure, unspecified; N20.0 Calculus of kidney; E83.42 Hypomagnesemia; R94.39 Abnormal result of other cardiovascular function study; I10 Essential (primary) hypertension; R41.82 Altered mental status, unspecified; F15.90 Other stimulant use, unspecified, uncomplicated; N39.0 Urinary tract infection, site not specified
CPT/HCPCS: 36000; 36415; 36600; 70450; 71010; 80053; 80307; 81000; 82140; 82150; 82375; 82803; 83605; 83690; 83735; 84484; 85025; 85610; 85652; 85730; 86308; 87040; 87077; 87086; 87186; 87430; 87631; 93005; 93041; 96360; 96361; 96365; 96366; 99285; G0481; J0696; J3475; P9612

== ENCOUNTER 2017-10-09 11:18 | Emergency (ER) | payer OTHER, SELFPAY ==
[2017-10-09] MEDS ORDERED: Hydromorphone 1 mg/ml Ampule IV ONE (12:02)
--- NOTE | 2017-10-09 12:09 | ERPHSYRPT ---
- History of Present Illness Time Seen by Provider: 10/09/17 11:57 Source: patient, family (carolee) Patient Subjective Stated Complaint: low abdomen pain with painful urination and bleeding Triage Nursing Assessment: anxious with c/o llow abdominal pain . noted blood on underwear. abdomen soft but tender on palpation. denies fever. states had a stroke in the past 4 weeks time. was seen here 4 weeks ago and waas diagnosed with kidney stone and stroke.. states affects his speech. 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 He has known renal stone disease. He has ureteral stent in place. He has seen Dr Bates. He noted hematuria since yesterday. Today he was going to Dr Bates office and noted severe supra pubic and groin pain. Stopped in ER. He has hematuria and has had some clots. Fever a few days ago to 100, none since. No N/V. Feels like he is able to urinate. Timing/Duration: today Allergies/Adverse Reactions: diflunisal [From Dolobid] Allergy (Verified 04/04/17 20:58) propoxyphene HCl [From Wygesic] Allergy (Verified 04/04/17 20:58) Home Medications: Carvedilol [Coreg] 25 mg PO BID 04/04/17 [History] Lisinopril 20 mg [Zestril 20 MG] 20 mg PO BID 04/04/17 [History] Hx Tetanus, Diphtheria Vaccination/Date Given: Yes Hx Influenza Vaccination/Date Given: Yes Hx Pneumococcal Vaccination/Date Given: Yes - Past Medical History Pertinent Past Medical History: Yes Neurological History: Stroke Cardiac History: Other Respiratory History: No Pertinent History Endocrine Medical History: No Pertinent History Musculoskeletal History: No Pertinent History GI Medical History: No Pertinent History History: Other Psycho-Social History: No Pertinent History Male Reproductive Disorders: No Pertinent History Other Medical History: kidney stone - Past Surgical History Past Surgical History: Yes Musculoskeletal: Orthopedic Surgery Other Surgical History: left thumb operation, L4L5 operations. - Social History Smoking Status: Current every day smoker How long have you smoked: 17 yrs Exposure to second hand smoke: No Alcohol Use: None Drug Use: none Patient Lives Alone: No Significant Family History: no pertinent family hx - Review of Systems Constitutional: Malaise, No Fever, No Chills Eyes: No Symptoms Ears, Nose, & Throat: No Symptoms Respiratory: No Cough, No Dyspnea Cardiac: No Chest Pain Abdominal/Gastrointestinal: Abdominal Pain (suprapubic), No Nausea, No Vomiting , No Diarrhea Genitourinary Symptoms: Hematuria, No Dysuria Skin: No Rash Neurological: No Focal Weakness, No Headache, No Parasthesia All Other Systems: Reviewed and Negative - Nursing Vital Signs Nursing Vital Signs: Initial Vital Signs Temperature 98.6 F 10/09/17 11:36 Pulse Rate 94 H 10/09/17 11:36 Respiratory Rate 20 10/09/17 11:36 Blood Pressure 166/117 10/09/17 11:36 O2 Sat by Pulse Oximetry 97 10/09/17 11:36 Pain Scale Pain Intensity 6 - Physical Exam General Appearance: alert Eye Exam: PERRL/EOMI Ears, Nose, Throat Exam: normal ENT inspection, moist mucous membranes Neck Exam: normal inspection, non-tender, supple Respiratory Exam: normal breath sounds, lungs clear Cardiovascular Exam: regular rate/rhythm, No murmur Gastrointestinal/Abdomen Exam: soft, tenderness (mild suprapubic), No distention , No mass, No guarding Male Genital Exam: normal genitalia, No epididymal tenderness Back Exam: normal inspection, normal range of motion Extremity Exam: normal inspection, normal range of motion Neurologic Exam: alert, oriented x 3, cooperative, sensation nml, No motor deficits Skin Exam: warm, dry, No rash SpO2 Interpretation: normal SpO2: 97 Oxygen Delivery: Room Air - Course Nursing assessment & vital signs reviewed: Yes Ordered Tests: Active Orders 24 hr Category Date Time Status Clean Catch Urine Specimen STAT Care 10/09/17 12:02 Active IV Insertion STAT Care 10/09/17 12:02 Active NPO (ED) STAT Care 10/09/17 12:02 Active KIDNEY [US] Stat Exams 10/09/17 12:03 Completed KUB Stat Exams 10/09/17 12:04 Completed BMP Stat Lab 10/09/17 12:10 Completed CBC W DIFF Stat Lab 10/09/17 12:10 Completed CULTURE,URINE Stat Lab 10/09/17 12:10 Received PROTIME WITH INR Stat Lab 10/09/17 12:10 Completed PTT Stat Lab 10/09/17 12:10 Completed UA W/ MICROSCOPIC Stat Lab 10/09/17 12:10 Completed Medication Summary Generic Name Dose Route Start Last Admin Trade Name Raiza PRN Reason Stop Dose Admin Sodium Chloride 1,000 mls @ 100 mls/hr 10/09/17 12:15 10/09/17 12:13 Sodium Chloride 0.9% 1000 Ml IV 11/08/17 12:14 100 mls/hr .Q10H DANA Administration Discontinued Medications Generic Name Dose Route Start Last Admin Trade Name Raiza PRN Reason Stop Dose Admin Hydromorphone HCl 1 mg 10/09/17 12:02 10/09/17 12:15 Hydromorphone 1 Mg/Ml Ampule IV 10/09/17 12:03 1 mg STAT ONE Administration Hydromorphone HCl Confirm 10/09/17 12:11 Hydromorphone 1 Mg/Ml Ampule Administered 10/09/17 12:12 Dose 1 mg .ROUTE .[facility]-MED ONE Lab/Rad Data: Laboratory Result Diagrams 10/09/17 12:10 10/09/17 12:10 Laboratory Results 10/09/17 10/09/17 10/09/17 Range/Units 12:10 12:10 12:10 WBC 6.9 (4.0-10.5) K/mm3 RBC 3.94 L (4.1-5.6) M/mm3 Hgb 12.3 L (12.5-18.0) gm/dl Hct 37.6 L (42-50) % MCV 95.4 (78-100) fl MCH 31.2 (26-32) pg MCHC 32.7 (32-36) g/dl RDW 12.9 (11.5-14.0) % Plt Count 183 (150-450) K/mm3 MPV 11.0 H (6-9.5) fl Gran % 72.6 H (36.0-66.0) % Lymphocytes % 21.5 L (24.0-44.0) % Monocytes % 4.8 (0.0-12.0) % Eosinophils % 1.0 (0.00-5.0) % Basophils % 0.1 (0.0-0.4) % Basophils # 0.01 (0-0.4) INR 1.11 (0.8-3.0) APTT 29.0 (24.1-36.1) SECONDS Sodium 142 (136-145) mEq/L Potassium 3.8 (3.5-5.1) mEq/L Chloride 107 (98-107) mEq/L Carbon Dioxide 27.8 (21-32) mEq/L Anion Gap 10.8 (5-15) MEQ/L BUN 21 H (9-20) mg/dL Creatinine 1.17 (0.55-1.30) mg/dl Estimated GFR > 60 ML/MIN Glucose 122 H (70-110) MG/DL Calcium 8.9 (8.5-10.1) mg/dL Ur Collection Type Urine Color (YELLOW) Urine Appearance (CLEAR) Urine pH (5-6) Ur Specific [place] (1.005-1.025) Urine Protein (Negative) Urine Ketones (NEGATIVE) Urine Blood (0-5) Elver/ul Urine Nitrite (NEGATIVE) Urine Bilirubin (NEGATIVE) Urine Urobilinogen (0-1) mg/dL Ur Leukocyte Esterase (NEGATIVE) Urine Microscopic RBC (0-2) /HPF Urine Microscopic WBC (0-5) /HPF Urine Bacteria (NEGATIVE) /HPF Urine Culture Reflexed (NO) Urine Glucose (NEGATIVE) mg/dL Specimen Received 10/09/17 Range/Units 12:10 WBC (4.0-10.5) K/mm3 RBC (4.1-5.6) M/mm3 Hgb (12.5-18.0) gm/dl Hct (42-50) % MCV (78-100) fl MCH (26-32) pg MCHC (32-36) g/dl RDW (11.5-14.0) % Plt Count (150-450) K/mm3 MPV (6-9.5) fl Gran % (36.0-66.0) % Lymphocytes % (24.0-44.0) % Monocytes % (0.0-12.0) % Eosinophils % (0.00-5.0) % Basophils % (0.0-0.4) % Basophils # (0-0.4) INR (0.8-3.0) APTT (24.1-36.1) SECONDS Sodium (136-145) mEq/L Potassium (3.5-5.1) mEq/L Chloride (98-107) mEq/L Carbon Dioxide (21-32) mEq/L Anion Gap (5-15) MEQ/L BUN (9-20) mg/dL Creatinine (0.55-1.30) mg/dl Estimated GFR ML/MIN Glucose (70-110) MG/DL Calcium (8.5-10.1) mg/dL Ur Collection Type VOID Urine Color BROWN (YELLOW) Urine Appearance CLOUDY (CLEAR) Urine pH 8.0 (5-6) Ur Specific Ken[place] 1.010 (1.005-1.025) Urine Protein 100 (Negative) Urine Ketones NEGATIVE (NEGATIVE) Urine Blood 250 (0-5) Elver/ul Urine Nitrite POSITIVE (NEGATIVE) Urine Bilirubin NEGATIVE (NEGATIVE) Urine Urobilinogen NORMAL (0-1) mg/dL Ur Leukocyte Esterase 2+ (NEGATIVE) Urine Microscopic RBC >100 (0-2) /HPF Urine Microscopic WBC >100 (0-5) /HPF Urine Bacteria MANY (NEGATIVE) /HPF Urine Culture Reflexed YES (NO) Urine Glucose NEGATIVE (NEGATIVE) mg/dL Specimen Received 10/09/17 1200 - Progress Progress Note: 10/09/17 13:30 Pain better. Had clear urine. CAlled Dr Bates who advised Rx cipro and office follow up. Reviewed sono and KUB. Counseled pt/family regarding: lab results, diagnosis, need for follow-up, rad results - Departure Time of Disposition: 13:30 Departure Disposition: Home Clinical Impression: left ureteral stent, Hematuria Condition: Stable Critical Care Time: No Referrals: FAVIAN BATES [COURTESY STAFF] - Instructions: Hematuria Additional Instructions: Rx cipro. Call Dr Bates for follow up appointment. Call or return for fever, uncontrolled pain, vomiting or concerns. Use your pain medication as already prescribed. Prescriptions: Ciprofloxacin [Cipro 500 MG] 1 tab PO BID #20 tablet
[2017-10-09] MEDS ORDERED: Hydromorphone 1 mg/ml Ampule ONE (12:11)
[2017-10-09] MEDS ORDERED: Sodium Chloride 0.9% 1000 ML 1,000 ML ONE (12:11)
[2017-10-09 12:14] LABS: BASOPHIL % 0.1 % (0.0-0.4); Granulocytes % 72.6 % (36.0-66.0); Lymphocytes % 21.5 % (24.0-44.0); Mean Cell Volume 95.4 fl (78-100); Mean Corpuscular Hemoglobin 31.2 pg (26-32); Monocytes % 4.8 % (0.0-12.0); Platelet Count 183 K/mm3 (150-450); Red Blood Count 3.94 M/mm3 (4.1-5.6); Red Cell Distribution Width 12.9 % (11.5-14.0); White Blood Count 6.9 K/mm3 (4.0-10.5)
[2017-10-09] MEDS ORDERED: Sodium Chloride 0.9% 1000 ML 1,000 ML IV SCH (12:15)
[2017-10-09 12:33] LABS: Collection Type VOID; Leukocyte Esterase 2+ (NEGATIVE)
[2017-10-09 12:34] LABS: ANION GAP 10.8 MEQ/L (5-15); BLOOD UREA NITROGEN 21 mg/dL (9-20); Bacteria MANY /HPF (NEGATIVE); Bilirubin NEGATIVE (NEGATIVE); Blood 250 Ery/ul (0-5); CHLORIDE 107 mEq/L (98-107); COMPLETE URINE MICROSCOPIC? YES; Carbon Dioxide 27.8 mEq/L (21-32); Glucose 122 MG/DL (70-110); Glucose NEGATIVE (NEGATIVE); Potassium 3.8 mEq/L (3.5-5.1); SODIUM 142 mEq/L (136-145); WBC >100 /HPF (0-5)
[2017-10-09 12:47] LABS: ADD URINE CULTURE? YES (NO); INR 1.11 (0.8-3.0); PROTIME 12.3 SECONDS (8.83-12.87)
--- NOTE | 2017-10-09 13:17 | XRAY ---
Indication: Passing blood clots. Left renal stent placed 4 weeks ago. Comparison: January 26, 2016. KUB demonstrates new left-sided double-J ureteral stent catheter in good position with minimally enlarging 9 mm left lower pole renal calculus, previously 7 mm. New 6 mm right upper pole renal calculus. Bowel gas pattern nonobstructed. Osseous structures intact.
--- NOTE | 2017-10-09 13:24 | XRAY ---
Indication: Hematuria. Left renal stent catheter placed 4 weeks ago. Two-dimensional renal sonogram performed. Comparison: None Right kidney measures 14.6 x 5.1 x 5.9 cm and the left measures 15.1 x 7.0 x 6.3 cm. Left kidney demonstrates mild hydronephrosis without perinephric fluid. Small 2 cm cyst in the left midpole. Right kidney negative for suspicious renal mass or hydronephrosis. Cortical measured differentiation preserved without cortical thinning. Images of the urinary bladder demonstrates known pigtail ureteral stent catheter. There is a 1.5 x 2.3 cm echogenicity along the bladder wall without posterior shadowing that may represent blood clot versus mass. Impression: 1. Left ureteral stent catheter with mild hydronephrosis. Patency of the stent catheter is in question. 2. Urinary bladder echogenicity, blood clot versus mass. 3. Left renal cyst. 4. Negative right renal sonogram.
[2017-10-09 13:29] VITALS: BP 140/101; PULSE 80
[2017-10-09 13:33] VITALS: O2SAT 97
== END 2017-10-09 13:46 | disposition home or self-care (01) ==
LOC: ED 11:18
DX: Z96.0 Presence of urogenital implants (principal); R31.9 Hematuria, unspecified; R10.30 Lower abdominal pain, unspecified
CPT/HCPCS: 36000; 36415; 74000; 76770; 80048; 81000; 85025; 85610; 85730; 87077; 87086; 87186; 96360; 96374; 99284; J1170

== ENCOUNTER 2018-04-05 11:47 | Emergency (ER) | payer OTHER ==
[2018-04-05] MEDS ORDERED: MORPHINE SULFATE 4 MG INJ IM ONE ×2 (12:21→13:22)
--- NOTE | 2018-04-05 12:25 | ERPHSYRPT ---
- History of Present Illness Time Seen by Provider: 04/05/18 12:22 Source: patient Patient Subjective Stated Complaint: states fell last night after tripping over the dog. landed on right shoulder. pain to shoulder. also had renal stent put in last august and for the past couple of days is having left lower quad belly pain. states has slight blood in urine Triage Nursing Assessment: ambulated to room per self guarding right arm. arm normal color, good radial pulse, good cap refill. no deformities noted. abd soft, tender llq. Physician History: mild to mod positional right shoulder ache for one day after falling over the dog, no loc, no bleeding, no neck pain, hx left renal stent and htn Allergies/Adverse Reactions: diflunisal [From Dolobid] Allergy (Verified 04/05/18 12:10) propoxyphene HCl [From Wygesic] Allergy (Verified 04/05/18 12:10) Home Medications: Carvedilol [Coreg] 25 mg PO BID 04/04/17 [History] Lisinopril 20 mg [Zestril 20 MG] 20 mg PO BID 04/04/17 [History] Amlodipine Besylate 5 mg [Norvasc 5 mg] 5 mg PO DAILY 04/05/18 [History] Atorvastatin Calcium [Lipitor 20MG Tablet] 20 mg PO DAILY 04/05/18 [History] Clopidogrel Bisulfate 75 mg [PLAVIX 75 MG Tablet] 75 mg PO DAILY 04/05/18 [History] Hx Tetanus, Diphtheria Vaccination/Date Given: No Hx Influenza Vaccination/Date Given: Yes Hx Pneumococcal Vaccination/Date Given: No Immunizations Up to Date: No - Review of Systems Constitutional: No Fever Eyes: No Vision Changes Respiratory: No Dyspnea Cardiac: No Chest Pain Abdominal/Gastrointestinal: No Abdominal Pain, No Vomiting Genitourinary Symptoms: No Dysuria Musculoskeletal: Fall, No Back Pain, No Neck Pain Skin: No Rash Neurological: No Dizziness, No Focal Weakness, No Headache - Past Medical History Pertinent Past Medical History: Yes Neurological History: Stroke Cardiac History: Other Respiratory History: No Pertinent History Endocrine Medical History: No Pertinent History Musculoskeletal History: No Pertinent History GI Medical History: No Pertinent History History: Other Psycho-Social History: No Pertinent History Male Reproductive Disorders: No Pertinent History Other Medical History: kidney stone - Past Surgical History Past Surgical History: Yes Genitourinary: Other Musculoskeletal: Orthopedic Surgery Other Surgical History: left thumb operation, L4L5 operations, renal stent. - Social History Smoking Status: Current every day smoker How long have you smoked: 13 Exposure to second hand smoke: Yes Alcohol Use: None Drug Use: none Patient Lives Alone: No Significant Family History: no pertinent family hx - Nursing Vital Signs Nursing Vital Signs: Initial Vital Signs Temperature 98.5 F 04/05/18 12:03 Pulse Rate 111 H 04/05/18 12:03 Respiratory Rate 18 04/05/18 12:03 Blood Pressure 160/105 04/05/18 12:03 O2 Sat by Pulse Oximetry 96 04/05/18 12:03 Pain Scale Pain Intensity 5 - Physical Exam General Appearance: no apparent distress Neck Exam: normal inspection, non-tender, supple, full range of motion Cardiovascular/Respiratory Exam: chest non-tender, normal breath sounds, regular rate/rhythm Abdominal Exam: non-tender Shoulder Exam: limited ROM, pain, No deformity Elbow/Forearm Exam: normal inspection, non-tender Wrist Exam: normal inspection, non-tender Hand Exam: normal inspection, non-tender Neuro/Tendon Exam: normal sensation Mental Status Exam: alert, oriented x 3, cooperative Skin Exam: warm, dry SpO2 Interpretation: normal SpO2: 96 Oxygen Delivery: Room Air - Radiology Exams Shoulder X-ray Interpretation: Discussed w/ radiologist, No Fracture Ordered Tests: Active Orders 24 hr Category Date Time Status Sling Application STAT Care 04/05/18 13:10 Ordered SHOULDER Stat Exams 04/05/18 12:51 Completed CBC W DIFF Stat Lab 04/05/18 12:36 Completed CMP Stat Lab 04/05/18 12:36 Completed UA W/RFX UR CULTURE Stat Lab 04/05/18 12:21 Uncollected Medication Summary Discontinued Medications Generic Name Dose Route Start Last Admin Trade Name Freq PRN Reason Stop Dose Admin Morphine Sulfate 4 mg 04/05/18 12:21 04/05/18 12:28 Morphine Sulfate 4 Mg Inj IM 04/05/18 12:22 4 mg STAT ONE Administration Morphine Sulfate Confirm 04/05/18 12:27 Morphine Sulfate 4 Mg Inj Administered 04/05/18 12:28 Dose 4 mg .ROUTE .[facility]-MED ONE Lab/Rad Data: Laboratory Result Diagrams 04/05/18 12:36 04/05/18 12:36 Laboratory Results 04/05/18 04/05/18 Range/Units 12:36 12:36 WBC 7.7 (4.0-10.5) K/mm3 RBC 4.62 (4.1-5.6) M/mm3 Hgb 14.8 (12.5-18.0) gm/dl Hct 43.6 (42-50) % MCV 94.4 (78-100) fl MCH 32.0 (26-32) pg MCHC 33.9 (32-36) g/dl RDW 12.6 (11.5-14.0) % Plt Count 137 L (150-450) K/mm3 MPV 11.4 H (6-9.5) fl Gran % 58.2 (36.0-66.0) % Eos # (Auto) 0.12 (0-0.5) Absolute Lymphs (auto) 2.22 (1.0-4.6) Absolute Monos (auto) 0.85 (0.0-1.3) Lymphocytes % 29.0 (24.0-44.0) % Monocytes % 11.1 (0.0-12.0) % Eosinophils % 1.6 (0.00-5.0) % Basophils % 0.1 (0.0-0.4) % Absolute Granulocytes 4.45 (1.4-6.9) Basophils # 0.01 (0-0.4) Sodium 142 (137-145) mmol/L Potassium 3.6 (3.5-5.1) mmol/L Chloride 106 (98-107) mmol/L Carbon Dioxide 26 (22-30) mmol/L Anion Gap 14.4 (5-15) MEQ/L BUN 13 (9-20) mg/dL Creatinine 0.85 (0.66-1.25) mg/dL Estimated GFR > 60.0 ML/MIN Glucose 141 H (74-106) mg/dL Calcium 9.4 (8.4-10.2) mg/dL Total Bilirubin 0.50 (0.2-1.3) mg/dL AST 44 (17-59) U/L ALT 96 H (0-50) U/L Alkaline Phosphatase 78 (38-126) U/L Serum Total Protein 8.2 (6.3-8.2) g/dL Albumin 4.2 (3.5-5.0) g/dL - Progress Progress: improved Progress Note: 04/05/18 13:12 differential d/w pt as cancer, rotator cuff injury - Departure Time of Disposition: 13:10 Departure Disposition: Home Clinical Impression: Shoulder injury Qualifiers: Encounter type: initial encounter Laterality: right Qualified Code(s): S49.91XA - Unspecified injury of right shoulder and upper arm, initial encounter Hematuria Qualifiers: Hematuria type: unspecified type Qualified Code(s): R31.9 - Hematuria, unspecified Condition: Stable Critical Care Time: No Referrals: DOCTOR,NO FAMILY [Primary Care Provider] - Instructions: Shoulder Sprain (DC) Additional Instructions: see your doctor, return if worse, morphine and norco warnings given, cipro, oral fluids
[2018-04-05] MEDS ORDERED: MORPHINE SULFATE 4 MG INJ ONE ×2 (12:27→13:24)
[2018-04-05 12:39] LABS: BASOPHIL % 0.1 % (0.0-0.4); Basophil (Absolute #) 0.01 (0-0.4); Eosinophil % 1.6 % (0.00-5.0); Eosinophil (Absolute #) 0.12 (0-0.5); Granulocyte Absolute (ANC) 4.45 (1.4-6.9); Granulocytes % 58.2 % (36.0-66.0); Hematocrit 43.6 % (42-50); Hemoglobin 14.8 gm/dl (12.5-18.0); Lymphocyte (Absolute #) 2.22 (1.0-4.6); Mean Cell Volume 94.4 fl (78-100); Mean Corpuscular Hgb Concent. 33.9 g/dl (32-36); Mean Platelet Volume 11.4 fl (6-9.5); Monocyte (Absolute #) 0.85 (0.0-1.3); Monocytes % 11.1 % (0.0-12.0); Platelet Count 137 K/mm3 (150-450); Red Blood Count 4.62 M/mm3 (4.1-5.6); Red Cell Distribution Width 12.6 % (11.5-14.0); White Blood Count 7.7 K/mm3 (4.0-10.5)
[2018-04-05 12:59] LABS: ALBUMIN 4.2 g/dL (3.5-5.0); ALKALINE PHOSPHATASE 78 U/L (38-126); ANION GAP 14.4 MEQ/L (5-15); BLOOD UREA NITROGEN 13 mg/dL (9-20); CHLORIDE 106 mmol/L (98-107); Calcium 9.4 mg/dL (8.4-10.2); Carbon Dioxide 26 mmol/L (22-30); Creatinine 1 0.85 mg/dL (0.66-1.25); Glucose 141 mg/dL (74-106); Potassium 3.6 mmol/L (3.5-5.1); SGOT/AST 44 U/L (17-59); SGPT/ALT 96 U/L (0-50); SODIUM 142 mmol/L (137-145); Total Protein 8.2 g/dL (6.3-8.2)
--- NOTE | 2018-04-05 12:59 | XRAY ---
Indication: Pain following injury. Limited range of motion. Comparison: None 3 views of the right shoulder demonstrates mild AC degenerative arthropathy. No other bony, articular, or soft tissue abnormalities.
[2018-04-05 13:07] VITALS: BP 144/93; PULSE 101
[2018-04-05 13:13] VITALS: O2SAT 96
== END 2018-04-05 13:38 | disposition home or self-care (01) ==
LOC: ED 11:47
DX: S49.91XA Unspecified injury of right shoulder and upper arm, initial encounter (principal); M25.511 Pain in right shoulder; R31.9 Hematuria, unspecified; W01.0XXA Fall on same level from slipping, tripping and stumbling without subsequent striking against object, initial encounter; Z79.01 Long term (current) use of anticoagulants; Z79.899 Other long term (current) drug therapy
CPT/HCPCS: 36415; 73030; 80053; 85025; 96372; 99284; J2270

== ENCOUNTER 2018-07-05 17:12 | Emergency (ER) | payer OTHER ==
[2018-07-05] MEDS ORDERED: Sodium Chloride 0.9% 1000 ML 1,000 ML IV STA (17:49)
[2018-07-05] MEDS ORDERED: Zofran 4 MG/2 ML VIAL IV ONE (17:49)
--- NOTE | 2018-07-05 17:50 | ERPHSYRPT ---
- History of Present Illness Time Seen by Provider: 07/05/18 17:37 Source: patient, family Exam Limitations: no limitations Physician History: The patient is a 53-year-old male with his complaining of diarrhea for 10 days. For the past 2 days he hasn't quite felt like himself. He has been nauseated but has not vomited. He had a left-sided kidney stent placed 9 months ago and has been in pain on the left side since that time. He says his left side is been hurting more for the past month. He has been offered evaluation by a urologist but has not attended the appointments. He denies fever or chills. He thinks he is dehydrated. He has a little bit of a headache. His past medical history is significant for CAD, hypertension, stroke , kidney stones, and ureteral stents. His states that his normal blood pressure is 190/110. She is concerned that his blood pressure now is 129/89 because she says that is now low. Timing/Duration: day(s) (10), gradual onset Severity: moderate Modifying Factors: Improves With: nothing Associated Symptoms: nausea, No vomiting Allergies/Adverse Reactions: diflunisal [From Dolobid] Allergy (Verified 07/05/18 17:47) propoxyphene HCl [From Wygesic] Allergy (Verified 07/05/18 17:47) Home Medications: Carvedilol [Coreg] 25 mg PO BID 04/04/17 [History] Lisinopril 20 mg [Zestril 20 MG] 20 mg PO BID 04/04/17 [History] Amlodipine Besylate 5 mg [Norvasc 5 mg] 5 mg PO DAILY 04/05/18 [History] Atorvastatin Calcium [Lipitor 20MG Tablet] 20 mg PO DAILY 04/05/18 [History] Clopidogrel Bisulfate 75 mg [PLAVIX 75 MG Tablet] 75 mg PO DAILY 04/05/18 [History] Hx Tetanus, Diphtheria Vaccination/Date Given: No Hx Influenza Vaccination/Date Given: Yes Hx Pneumococcal Vaccination/Date Given: No - Review of Systems Constitutional: No Fever, No Chills Eyes: No Symptoms Ears, Nose, & Throat: No Symptoms Respiratory: No Cough, No Dyspnea Cardiac: No Chest Pain, No Edema, No Syncope Abdominal/Gastrointestinal: Nausea, Diarrhea, No Vomiting Genitourinary Symptoms: Dysuria Musculoskeletal: No Back Pain, No Neck Pain Skin: No Rash Neurological: No Dizziness, No Focal Weakness, No Sensory Changes Psychological: No Symptoms Endocrine: No Symptoms Hematologic/Lymphatic: No Symptoms Immunological/Allergic: No Symptoms All Other Systems: Reviewed and Negative - Past Medical History Pertinent Past Medical History: Yes Neurological History: Stroke Cardiac History: Other Respiratory History: No Pertinent History Endocrine Medical History: No Pertinent History Musculoskeletal History: No Pertinent History GI Medical History: No Pertinent History History: Other Psycho-Social History: No Pertinent History Male Reproductive Disorders: No Pertinent History Other Medical History: kidney stone - Past Surgical History Past Surgical History: Yes Genitourinary: Other Musculoskeletal: Orthopedic Surgery Other Surgical History: left thumb operation, L4L5 operations, renal stent. - Social History Smoking Status: Current every day smoker How long have you smoked: 13 Exposure to second hand smoke: Yes Alcohol Use: None Drug Use: none Patient Lives Alone: No Significant Family History: no pertinent family hx - Nursing Vital Signs Nursing Vital Signs: Initial Vital Signs Temperature 97.8 F 07/05/18 17:32 Pulse Rate 85 07/05/18 17:32 Respiratory Rate 16 07/05/18 17:32 Blood Pressure 129/89 07/05/18 17:32 O2 Sat by Pulse Oximetry 95 07/05/18 17:32 Pain Scale Pain Intensity 8 - Physical Exam General Appearance: no apparent distress, alert Eye Exam: PERRL/EOMI, eyes nml inspection Ears, Nose, Throat Exam: normal ENT inspection, TMs normal, pharynx normal, moist mucous membranes Neck Exam: normal inspection, non-tender, supple, full range of motion Respiratory Exam: normal breath sounds, lungs clear, No respiratory distress Cardiovascular Exam: regular rate/rhythm, normal heart sounds, normal peripheral pulses Gastrointestinal/Abdomen Exam: soft, normal bowel sounds, tenderness (LUQ), No mass Rectal Exam: not done Back Exam: normal inspection, normal range of motion, No CVA tenderness, No vertebral tenderness Extremity Exam: normal inspection, normal range of motion, pelvis stable Neurologic Exam: alert, oriented x 3, cooperative, normal mood/affect, nml cerebellar function, nml station & gait, sensation nml, No motor deficits Skin Exam: normal color, warm, dry, No rash Lymphatic Exam: No adenopathy SpO2 Interpretation: normal Oxygen Delivery: Room Air - Radiology Exams Chest X-ray Interpretation: Interpreted by me, Negative Abdomen X-ray Interpretation: Interpreted by me, Negative Ordered Tests: Active Orders 24 hr Category Date Time Status Clean Catch Urine Specimen STAT Care 07/05/18 17:49 Active IV Insertion STAT Care 07/05/18 17:49 Active OBSTR/ACUTE ABDOMEN SERIES Stat Exams 07/05/18 17:50 Taken AMYLASE Stat Lab 07/05/18 18:00 Completed CBC W DIFF Stat Lab 07/05/18 18:00 Completed CMP Stat Lab 07/05/18 18:00 Completed CULTURE,URINE Stat Lab 07/05/18 18:53 Received LIPASE Stat Lab 07/05/18 18:00 Completed Lactic Acid Stat Lab 07/05/18 17:58 Completed TROPONIN Q3H Lab 07/05/18 18:00 Completed UA W/ MICROSCOPIC Stat Lab 07/05/18 18:53 Completed Medication Summary Discontinued Medications Generic Name Dose Route Start Last Admin Trade Name Freq PRN Reason Stop Dose Admin Sodium Chloride 1,000 mls @ 999 mls/hr 07/05/18 17:49 07/05/18 18:03 Sodium Chloride 0.9% 1000 Ml IV 07/05/18 18:49 999 mls/hr .Q1H1M STA Administration Sodium Chloride Confirm 07/05/18 18:01 Sodium Chloride 0.9% 1000 Ml Administered 07/05/18 18:02 Dose 1,000 mls @ ud .ROUTE .STK-MED ONE Ondansetron HCl 4 mg 07/05/18 17:49 07/05/18 18:03 Zofran 4 Mg/2 Ml Vial IV 07/05/18 17:50 4 mg STAT ONE Administration Ondansetron HCl Confirm 07/05/18 18:01 Zofran 4 Mg/2 Ml Vial Administered 07/05/18 18:02 Dose 4 mg .ROUTE .STK-MED ONE Lab/Rad Data: Laboratory Result Diagrams 07/05/18 18:00 07/05/18 18:00 Laboratory Results 07/05/18 07/05/18 07/05/18 Range/Units 18:53 18:00 18:00 WBC (4.0-10.5) K/mm3 RBC (4.1-5.6) M/mm3 Hgb (12.5-18.0) gm/dl Hct (42-50) % MCV (78-100) fl MCH (26-32) pg MCHC (32-36) g/dl RDW (11.5-14.0) % Plt Count (150-450) K/mm3 MPV (6-9.5) fl Gran % (36.0-66.0) % Eos # (Auto) (0-0.5) Absolute Lymphs (auto) (1.0-4.6) Absolute Monos (auto) (0.0-1.3) Lymphocytes % (24.0-44.0) % Monocytes % (0.0-12.0) % Eosinophils % (0.00-5.0) % Basophils % (0.0-0.4) % Absolute Granulocytes (1.4-6.9) Basophils # (0-0.4) Sodium 143 (137-145) mmol/L Potassium 3.6 (3.5-5.1) mmol/L Chloride 105 (98-107) mmol/L Carbon Dioxide 26 (22-30) mmol/L Anion Gap 14.7 (5-15) MEQ/L BUN 18 (9-20) mg/dL Creatinine 1.17 (0.66-1.25) mg/dL Estimated GFR > 60.0 ML/MIN Glucose 107 H (74-106) mg/dL Lactic Acid (0.4-2.0) Calcium 9.3 (8.4-10.2) mg/dL Total Bilirubin 0.30 (0.2-1.3) mg/dL AST 40 (17-59) U/L ALT 81 H (0-50) U/L Alkaline Phosphatase 87 (38-126) U/L Troponin I < 0.012 (0.000-0.034) ng/mL Serum Total Protein 7.9 (6.3-8.2) g/dL Albumin 4.3 (3.5-5.0) g/dL Amylase 38 (30-110) U/L Lipase 42 (23-300) U/L Ur Collection Type VOID Urine Color DARK YELLOW (YELLOW) Urine Appearance CLOUDY (CLEAR) Urine pH 5.0 (5-6) Ur Specific [place] 1.020 (1.005-1.025) Urine Protein 30 (Negative) Urine Ketones NEGATIVE (NEGATIVE) Urine Blood 250 (0-5) Elver/ul Urine Nitrite NEGATIVE (NEGATIVE) Urine Bilirubin NEGATIVE (NEGATIVE) Urine Urobilinogen NORMAL (0-1) mg/dL Ur Leukocyte Esterase 1+ (NEGATIVE) Urine Microscopic RBC >100 (0-2) /HPF Urine Microscopic WBC 5-10 (0-5) /HPF Ur Epithelial Cells FEW (FEW) /HPF Urine Bacteria MANY (NEGATIVE) /HPF Urine Yeast MODERATE (NEGATIVE) /HPF Urine Culture Reflexed YES (NO) Urine Glucose NEGATIVE (NEGATIVE) mg/dL Specimen Received 07/05/18 [id number] 07/05/18 07/05/18 Range/Units 18:00 17:58 WBC 6.0 (4.0-10.5) K/mm3 RBC 4.52 (4.1-5.6) M/mm3 Hgb 14.6 (12.5-18.0) gm/dl Hct 42.0 (42-50) % MCV 92.9 (78-100) fl MCH 32.3 H (26-32) pg MCHC 34.8 (32-36) g/dl RDW 12.3 (11.5-14.0) % Plt Count 129 L (150-450) K/mm3 MPV 11.7 H (6-9.5) fl Gran % 55.7 (36.0-66.0) % Eos # (Auto) 0.13 (0-0.5) Absolute Lymphs (auto) 1.65 (1.0-4.6) Absolute Monos (auto) 0.86 (0.0-1.3) Lymphocytes % 27.5 (24.0-44.0) % Monocytes % 14.4 H (0.0-12.0) % Eosinophils % 2.2 (0.00-5.0) % Basophils % 0.2 (0.0-0.4) % Absolute Granulocytes 3.34 (1.4-6.9) Basophils # 0.01 (0-0.4) Sodium (137-145) mmol/L Potassium (3.5-5.1) mmol/L Chloride (98-107) mmol/L Carbon Dioxide (22-30) mmol/L Anion Gap (5-15) MEQ/L BUN (9-20) mg/dL Creatinine (0.66-1.25) mg/dL Estimated GFR ML/MIN Glucose (74-106) mg/dL Lactic Acid 0.8 (0.4-2.0) Calcium (8.4-10.2) mg/dL Total Bilirubin (0.2-1.3) mg/dL AST (17-59) U/L ALT (0-50) U/L Alkaline Phosphatase (38-126) U/L Troponin I (0.000-0.034) ng/mL Serum Total Protein (6.3-8.2) g/dL Albumin (3.5-5.0) g/dL Amylase (30-110) U/L Lipase (23-300) U/L Ur Collection Type Urine Color (YELLOW) Urine Appearance (CLEAR) Urine pH (5-6) Ur Specific [place] (1.005-1.025) Urine Protein (Negative) Urine Ketones (NEGATIVE) Urine Blood (0-5) Elver/ul Urine Nitrite (NEGATIVE) Urine Bilirubin (NEGATIVE) Urine Urobilinogen (0-1) mg/dL Ur Leukocyte Esterase (NEGATIVE) Urine Microscopic RBC (0-2) /HPF Urine Microscopic WBC (0-5) /HPF Ur Epithelial Cells (FEW) /HPF Urine Bacteria (NEGATIVE) /HPF Urine Yeast (NEGATIVE) /HPF Urine Culture Reflexed (NO) Urine Glucose (NEGATIVE) mg/dL Specimen Received - Progress Progress: improved Counseled pt/family regarding: lab results, diagnosis, need for follow-up, rad results - Departure Time of Disposition: 19:28 Departure Disposition: Home Clinical Impression: Diarrhea, UTI (urinary tract infection) Condition: Stable Critical Care Time: No Referrals: BIRGIT ASHLEY MD [Primary Care Provider] - Additional Instructions: You have diarrhea and UTI. You were given Zofran 4 mg, Nubain 5 mg, Rocephin 1 g, and fluids by IV in the ER. Take ciprofloxacin 500 mg 2 times a day for 10 days. He was sent home with stool collection containers. Follow-up with your urologist as scheduled. Prescriptions: Ciprofloxacin [Cipro 500 MG] 1 tab PO BID #20 tablet
[2018-07-05] MEDS ORDERED: Zofran 4 MG/2 ML VIAL ONE (18:01)
[2018-07-05] MEDS ORDERED: Sodium Chloride 0.9% 1000 ML 1,000 ML ONE (18:01)
[2018-07-05 18:05] LABS: BASOPHIL % 0.2 % (0.0-0.4); Basophil (Absolute #) 0.01 (0-0.4); Eosinophil % 2.2 % (0.00-5.0); Eosinophil (Absolute #) 0.13 (0-0.5); Granulocyte Absolute (ANC) 3.34 (1.4-6.9); Granulocytes % 55.7 % (36.0-66.0); Hemoglobin 14.6 gm/dl (12.5-18.0); Lymphocyte (Absolute #) 1.65 (1.0-4.6); Lymphocytes % 27.5 % (24.0-44.0); Mean Cell Volume 92.9 fl (78-100); Mean Corpuscular Hemoglobin 32.3 pg (26-32); Mean Corpuscular Hgb Concent. 34.8 g/dl (32-36); Mean Platelet Volume 11.7 fl (6-9.5); Monocyte (Absolute #) 0.86 (0.0-1.3); Monocytes % 14.4 % (0.0-12.0); Platelet Count 129 K/mm3 (150-450); Red Blood Count 4.52 M/mm3 (4.1-5.6); Red Cell Distribution Width 12.3 % (11.5-14.0)
[2018-07-05 18:33] LABS: ALBUMIN 4.3 g/dL (3.5-5.0); ALKALINE PHOSPHATASE 87 U/L (38-126); AMYLASE 38 U/L (30-110); ANION GAP 14.7 MEQ/L (5-15); BLOOD UREA NITROGEN 18 mg/dL (9-20); CHLORIDE 105 mmol/L (98-107); Calcium 9.3 mg/dL (8.4-10.2); Carbon Dioxide 26 mmol/L (22-30); Creatinine 1 1.17 mg/dL (0.66-1.25); Glucose 107 mg/dL (74-106); LIPASE 42 U/L (23-300); Potassium 3.6 mmol/L (3.5-5.1); SGOT/AST 40 U/L (17-59); SGPT/ALT 81 U/L (0-50); SODIUM 143 mmol/L (137-145); Total Protein 7.9 g/dL (6.3-8.2)
[2018-07-05 19:23] LABS: Appearance CLOUDY (CLEAR); Bilirubin NEGATIVE (NEGATIVE); Blood 250 Ery/ul (0-5); Glucose NEGATIVE (NEGATIVE); Ketones NEGATIVE (NEGATIVE); Leukocyte Esterase 1+ (NEGATIVE); Nitrite NEGATIVE (NEGATIVE); Protein,Urine Dip 30 (Negative); Urobilinogen NORMAL mg/dL (0-1)
[2018-07-05 19:24] LABS: Bacteria MANY /HPF (NEGATIVE); Epithelial Cells FEW /HPF (FEW); RBC >100 /HPF (0-2)
[2018-07-05] MEDS ORDERED: ROCEPHIN 1 Gm-D5w 50 ml Bag** 1 G/50 ML IVPB IV STA (19:35)
[2018-07-05] MEDS ORDERED: Nubain 10 MG/ML IV ONE (19:36)
[2018-07-05] MEDS ORDERED: Nubain 10 MG/ML ONE (19:41)
[2018-07-05] MEDS ORDERED: ROCEPHIN 1 Gm-D5w 50 ml Bag** 1 G/50 ML IVPB IV ONE (19:41)
[2018-07-05 19:50] VITALS: BP 132/80; PULSE 92
[2018-07-05 19:52] VITALS: O2SAT 95
--- NOTE | 2018-07-05 22:15 | XRAY ---
Indication: Diarrhea. Comparison: Chest exam August 28, 2017. 2 views of the abdomen nonacute and nonobstructed with bilateral renal calculi and left double-J ureteral stent catheter in situ. Remaining solid organs unremarkable. Osseous structures intact with mild degenerative spondylosis. Single PA chest again demonstrates minimal bibasilar atelectasis/scarring. No focal infiltrate, consolidation, or large effusion. Heart is not enlarged. Bony thorax intact with mild degenerative changes. Impression: 1. Bilateral renal calculi and left ureteral stent catheter in situ. 2. Stable nonacute 1V chest with chronic features.
== END 2018-07-05 20:17 | disposition home or self-care (01) ==
LOC: ED 17:12
DX: R19.7 Diarrhea, unspecified (principal); N39.0 Urinary tract infection, site not specified; R51 Headache; Z79.899 Other long term (current) drug therapy; R11.0 Nausea; Z79.01 Long term (current) use of anticoagulants; I10 Essential (primary) hypertension
CPT/HCPCS: 36415; 74022; 80053; 81000; 82150; 83605; 83690; 84484; 85025; 87086; 96360; 96365; 96374; 96375; 99284; J0696; J2300; J2405

== ENCOUNTER 2019-06-02 20:37 | Emergency (ER) | payer MEDICARE, OTHER ==
--- NOTE | 2019-06-02 20:41 | ERPHSYRPT ---
- History of Present Illness Time Seen by Provider: 06/02/19 20:41 Source: patient, EMS Exam Limitations: no limitations Physician History: 54 y/o white male with h/o cardiomyopathy, htn, cva in past brought into ED by EMS because of bilat ankle and feet swelling since this am. pt had been incarcerated and has not had his meds in 2 days. pt states he has a little substernal chest pressure and mild soa. 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 Timing/Duration: today Severity: mild Associated Symptoms: shortness of breath, chest pain Allergies/Adverse Reactions: diflunisal [From Dolobid] Allergy (Verified 06/02/19 20:50) propoxyphene HCl [From Wygesic] Allergy (Verified 06/02/19 20:50) Home Medications: Carvedilol [Coreg] 25 mg PO BID 04/04/17 [History] Lisinopril 20 mg [Zestril 20 MG] 20 mg PO BID 04/04/17 [History] Amlodipine Besylate 5 mg [Norvasc 5 mg] 5 mg PO DAILY 04/05/18 [History] Atorvastatin Calcium [Lipitor 20MG Tablet] 20 mg PO DAILY 04/05/18 [History] Clopidogrel Bisulfate 75 mg [PLAVIX 75 MG Tablet] 75 mg PO DAILY 04/05/18 [History] Hx Tetanus, Diphtheria Vaccination/Date Given: No Hx Influenza Vaccination/Date Given: Yes Hx Pneumococcal Vaccination/Date Given: No - Review of Systems Constitutional: No Symptoms Eyes: No Symptoms Ears, Nose, & Throat: No Symptoms Respiratory: Dyspnea (mild) Cardiac: Chest Pain (mild) Abdominal/Gastrointestinal: No Symptoms Genitourinary Symptoms: No Symptoms Musculoskeletal: No Symptoms Skin: No Symptoms Neurological: No Symptoms Psychological: No Symptoms Endocrine: No Symptoms Hematologic/Lymphatic: No Symptoms Immunological/Allergic: No Symptoms All Other Systems: Reviewed and Negative - Past Medical History Pertinent Past Medical History: Yes Neurological History: Stroke Cardiac History: Other Respiratory History: No Pertinent History Endocrine Medical History: No Pertinent History Musculoskeletal History: No Pertinent History GI Medical History: No Pertinent History History: Other Psycho-Social History: No Pertinent History Male Reproductive Disorders: No Pertinent History Other Medical History: kidney stone - Past Surgical History Past Surgical History: Yes Neuro Surgical History: No Pertinent History Cardiac: No Pertinent History Respiratory: No Pertinent History Gastrointestinal: No Pertinent History Genitourinary: Other Musculoskeletal: Orthopedic Surgery Other Surgical History: left thumb operation, L4L5 operations, renal stent. - Social History Smoking Status: Current every day smoker How long have you smoked: 13 Exposure to second hand smoke: Yes Alcohol Use: None Drug Use: none Patient Lives Alone: No Significant Family History: no pertinent family hx - Nursing Vital Signs Nursing Vital Signs: Initial Vital Signs Temperature 98.9 F 06/02/19 20:53 Pulse Rate 109 H 06/02/19 20:53 Respiratory Rate 18 06/02/19 20:53 Blood Pressure 143/95 06/02/19 20:53 O2 Sat by Pulse Oximetry 94 L 06/02/19 20:53 Pain Scale Pain Intensity 8 - Physical Exam General Appearance: mild distress, alert, anxiety Eye Exam: PERRL/EOMI, eyes nml inspection Ears, Nose, Throat Exam: normal ENT inspection, moist mucous membranes Neck Exam: normal inspection, non-tender, supple, full range of motion Respiratory Exam: normal breath sounds, lungs clear, airway intact, No chest tenderness, No respiratory distress Cardiovascular Exam: regular rate/rhythm, normal heart sounds, normal peripheral pulses Gastrointestinal/Abdomen Exam: soft, normal bowel sounds, No tenderness Rectal Exam: not done Back Exam: normal inspection, normal range of motion, No CVA tenderness, No vertebral tenderness Extremity Exam: normal inspection, normal range of motion, pelvis stable Neurologic Exam: alert, oriented x 3, cooperative, 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 tested Skin Exam: normal color, warm, dry Lymphatic Exam: No adenopathy SpO2 Interpretation: borderline oxygenation O2 Delivery: Room Air - Course Nursing assessment & vital signs reviewed: Yes EKG Interpreted by Me: RATE (104), Sinus Rhythm, NORMAL AXIS, NORMAL INTERVALS, NORMAL QRS, Other (no comparison ekg) Ordered Tests: Active Orders 24 hr Category Date Time Status EKG-ER Only STAT Care 06/02/19 21:07 Active IV Insertion STAT Care 06/02/19 21:07 Active Pulse Oximetry (ED) STAT Care 06/02/19 21:07 Active CHEST 1 VIEW (PORTABLE) Stat Exams 06/02/19 21:15 Taken CBC W DIFF Stat Lab 06/02/19 21:30 Completed CMP Stat Lab 06/02/19 21:30 Completed D-DIMER QUANTITATION Stat Lab 06/02/19 21:30 Received NT PRO BNP Stat Lab 06/02/19 21:30 Completed PROTIME WITH INR Stat Lab 06/02/19 21:30 Completed TROPONIN Q3H Lab 06/02/19 21:30 Completed TROPONIN Q3H Lab 06/03/19 00:15 Ordered TROPONIN Q3H Lab 06/03/19 03:15 Ordered TROPONIN Q3H Lab 06/03/19 06:15 Ordered TROPONIN Q3H Lab 06/03/19 09:15 Ordered Medication Summary Discontinued Medications Generic Name Dose Route Start Last Admin Trade Name Freq PRN Reason Stop Dose Admin Furosemide 40 mg 06/02/19 23:13 06/02/19 23:46 Lasix 40 Mg/4 Ml IV 06/02/19 23:14 40 mg STAT ONE Administration Furosemide Confirm 06/02/19 23:44 Lasix 40 Mg/4 Ml Administered 06/02/19 23:45 Dose 40 mg .ROUTE .STK-MED ONE Morphine Sulfate 2 mg 06/02/19 21:32 06/02/19 21:42 Morphine Sulfate 2 Mg Inj IV 06/02/19 21:33 2 mg STAT ONE Administration Morphine Sulfate Confirm 06/02/19 21:37 Morphine Sulfate 2 Mg Inj Administered 06/02/19 21:38 Dose 2 mg .ROUTE .STK-MED ONE Ondansetron HCl 4 mg 06/02/19 21:32 06/02/19 21:42 Zofran 4 Mg/2 Ml Vial IV 06/02/19 21:33 4 mg STAT ONE Administration Ondansetron HCl Confirm 06/02/19 21:37 Zofran 4 Mg/2 Ml Vial Administered 06/02/19 21:38 Dose 4 mg .ROUTE .STK-MED ONE Potassium Chloride 10 meq 06/02/19 23:14 06/02/19 23:45 Klor Con 10 Meq PO 06/02/19 23:15 10 meq STAT ONE Administration Potassium Chloride Confirm 06/02/19 23:44 Klor Con 10 Meq Administered 06/02/19 23:45 Dose 10 meq PO .STK-MED ONE Lab/Rad Data: Laboratory Result Diagrams 06/02/19 21:30 06/02/19 21:30 Laboratory Results 06/02/19 06/02/19 06/02/19 Range/Units 21:30 21:30 21:30 WBC (4.0-10.5) K/mm3 RBC (4.1-5.6) M/mm3 Hgb (12.5-18.0) gm/dl Hct (42-50) % MCV (78-100) fl MCH (26-32) pg MCHC (32-36) g/dl RDW (11.5-14.0) % Plt Count (150-450) K/mm3 MPV (6-9.5) fl Gran % (36.0-66.0) % Eos # (Auto) (0-0.5) Absolute Lymphs (auto) (1.0-4.6) Absolute Monos (auto) (0.0-1.3) Lymphocytes % (24.0-44.0) % Monocytes % (0.0-12.0) % Eosinophils % (0.00-5.0) % Basophils % (0.0-0.4) % Absolute Granulocytes (1.4-6.9) Basophils # (0-0.4) PT 13.6 H (8.83-12.87) SECONDS INR 1.20 (0.8-3.0) Sodium 145 (137-145) mmol/L Potassium 3.4 L (3.5-5.1) mmol/L Chloride 106 (98-107) mmol/L Carbon Dioxide 28 (22-30) mmol/L Anion Gap 14.0 (5-15) MEQ/L BUN 17 (9-20) mg/dL Creatinine 0.99 (0.66-1.25) mg/dL Estimated GFR > 60.0 ML/MIN Glucose 82 (74-106) mg/dL Calcium 9.4 (8.4-10.2) mg/dL Total Bilirubin 0.40 (0.2-1.3) mg/dL AST 42 (17-59) U/L ALT 49 (0-50) U/L Alkaline Phosphatase 76 (38-126) U/L Troponin I < 0.012 (0.000-0.034) ng/mL NT-Pro-B Natriuret Pep 84.8 (0-900) pg/mL Serum Total Protein 8.2 (6.3-8.2) g/dL Albumin 4.2 (3.5-5.0) g/dL 06/02/19 Range/Units 21:30 WBC 8.5 (4.0-10.5) K/mm3 RBC 4.34 (4.1-5.6) M/mm3 Hgb 14.2 (12.5-18.0) gm/dl Hct 42.4 (42-50) % MCV 97.7 (78-100) fl MCH 32.7 H (26-32) pg MCHC 33.5 (32-36) g/dl RDW 12.3 (11.5-14.0) % Plt Count 122 L (150-450) K/mm3 MPV 11.7 H (6-9.5) fl Gran % 68.7 H (36.0-66.0) % Eos # (Auto) 0.09 (0-0.5) Absolute Lymphs (auto) 1.71 (1.0-4.6) Absolute Monos (auto) 0.85 (0.0-1.3) Lymphocytes % 20.1 L (24.0-44.0) % Monocytes % 10.0 (0.0-12.0) % Eosinophils % 1.1 (0.00-5.0) % Basophils % 0.1 (0.0-0.4) % Absolute Granulocytes 5.84 (1.4-6.9) Basophils # 0.01 (0-0.4) PT (8.83-12.87) SECONDS INR (0.8-3.0) Sodium (137-145) mmol/L Potassium (3.5-5.1) mmol/L Chloride (98-107) mmol/L Carbon Dioxide (22-30) mmol/L Anion Gap (5-15) MEQ/L BUN (9-20) mg/dL Creatinine (0.66-1.25) mg/dL Estimated GFR ML/MIN Glucose (74-106) mg/dL Calcium (8.4-10.2) mg/dL Total Bilirubin (0.2-1.3) mg/dL AST (17-59) U/L ALT (0-50) U/L Alkaline Phosphatase (38-126) U/L Troponin I (0.000-0.034) ng/mL NT-Pro-B Natriuret Pep (0-900) pg/mL Serum Total Protein (6.3-8.2) g/dL Albumin (3.5-5.0) g/dL - Progress Progress: pain not gone completely, re-examined Progress Note: 06/03/19 00:25 d dimer called to us from [facility] normal at 0.35 Counseled pt/family regarding: lab results, diagnosis, need for follow-up - Departure Departure Disposition: Home Clinical Impression: Bilateral lower extremity edema Condition: Stable Critical Care Time: No Referrals: BIRGIT ASHLEY MD [Primary Care Provider] - Additional Instructions: resume your medications as prescribed. follow up with primary doctor tomorrow for further management
[2019-06-02] MEDS ORDERED: Zofran 4 MG/2 ML VIAL IV ONE (21:32)
[2019-06-02] MEDS ORDERED: MORPHINE SULFATE 2 MG INJ IV ONE (21:32)
[2019-06-02] MEDS ORDERED: MORPHINE SULFATE 2 MG INJ ONE (21:37)
[2019-06-02] MEDS ORDERED: Zofran 4 MG/2 ML VIAL ONE (21:37)
[2019-06-02 21:38] LABS: BASOPHIL % 0.1 % (0.0-0.4); Basophil (Absolute #) 0.01 (0-0.4); Eosinophil % 1.1 % (0.00-5.0); Eosinophil (Absolute #) 0.09 (0-0.5); Granulocyte Absolute (ANC) 5.84 (1.4-6.9); Granulocytes % 68.7 % (36.0-66.0); Hematocrit 42.4 % (42-50); Hemoglobin 14.2 gm/dl (12.5-18.0); Lymphocyte (Absolute #) 1.71 (1.0-4.6); Lymphocytes % 20.1 % (24.0-44.0); Mean Cell Volume 97.7 fl (78-100); Mean Corpuscular Hemoglobin 32.7 pg (26-32); Mean Corpuscular Hgb Concent. 33.5 g/dl (32-36); Mean Platelet Volume 11.7 fl (6-9.5); Monocyte (Absolute #) 0.85 (0.0-1.3); Platelet Count 122 K/mm3 (150-450); Red Blood Count 4.34 M/mm3 (4.1-5.6); Red Cell Distribution Width 12.3 % (11.5-14.0); White Blood Count 8.5 K/mm3 (4.0-10.5)
[2019-06-02 21:49] LABS: INR 1.2 (0.8-3.0); PROTIME 13.6 SECONDS (8.83-12.87)
[2019-06-02 22:05] LABS: ALBUMIN 4.2 g/dL (3.5-5.0); ALKALINE PHOSPHATASE 76 U/L (38-126); BLOOD UREA NITROGEN 17 mg/dL (9-20); CHLORIDE 106 mmol/L (98-107); Calcium 9.4 mg/dL (8.4-10.2); Carbon Dioxide 28 mmol/L (22-30); Creatinine 1 0.99 mg/dL (0.66-1.25); Glucose 82 mg/dL (74-106); NT PRO BNP 84.8 pg/mL (0-900); Potassium 3.4 mmol/L (3.5-5.1); SGOT/AST 42 U/L (17-59); SGPT/ALT 49 U/L (0-50); SODIUM 145 mmol/L (137-145); Total Protein 8.2 g/dL (6.3-8.2)
[2019-06-02 22:29] VITALS: O2SAT 94
[2019-06-02] MEDS ORDERED: Lasix 40 MG/4 ML IV ONE (23:13)
[2019-06-02] MEDS ORDERED: Klor Con 10 MEQ PO ONE ×2 (23:14→23:44)
[2019-06-02] MEDS ORDERED: Lasix 40 MG/4 ML ONE (23:44)
[2019-06-03] MEDS ORDERED: MORPHINE SULFATE 2 MG INJ IV ONE (00:25)
[2019-06-03] MEDS ORDERED: MORPHINE SULFATE 2 MG INJ ONE (00:55)
[2019-06-03 01:16] VITALS: BP 138/79; PULSE 98
--- NOTE | 2019-06-03 11:08 | XRAY ---
Exam: AP portable chest film from 06/02/2019. Comparison: Frontal chest film from acute abdominal series dated 07/05/2018. Indication: 54-year-old male with chest pain, shortness of breath. Findings: The film was obtained in a mildly lordotic projection. Inspiratory effort is a bit less than average. The transverse heart size appears within normal limits. The karli and mediastinal structures appear unremarkable. No air space infiltrates, vascular congestion, pneumothorax, or pleural fluid is seen. Prior minimal linear atelectasis/scarring at the lung bases has almost resolved. Mild lateral osteophyte formation is seen within the lower thoracic spine. No acute osseous process is seen. Impression: 1. No acute cardiopulmonary process is seen.
== END 2019-06-03 01:15 | disposition home or self-care (01) ==
LOC: ED 20:37
DX: R60.9 Edema, unspecified (principal); R07.89 Other chest pain; I10 Essential (primary) hypertension; Z86.73 Personal history of transient ischemic attack (TIA), and cerebral infarction without residual deficits; Z79.899 Other long term (current) drug therapy; Z87.442 Personal history of urinary calculi
CPT/HCPCS: 36000; 36415; 71045; 80053; 83880; 84484; 85025; 85379; 85610; 93005; 94760; 96374; 96375; 96376; 99284; J1940; J2270; J2405; A9270-GY